=== PATIENT | male | born 1980 | race Caucasian/White ===

== ENCOUNTER 2017-01-13 12:09 | Emergency (ER) | payer OTHER ==
[~2017-01-13] VITALS: Ht 167.6 cm; Wt 78.1 kg
[2017-01-13 12:15] VITALS: TEMP 37.1; Ht 167.6 cm; Wt 78.1 kg
[2017-01-13 12:47] VITALS: O2SAT 96
[2017-01-13 13:09] LABS: BASO % 0.2 %; BASO ABS # 0.02 K/uL (0-0.2); COMPLETE YES; EOS % 0.1 %; HEMATOCRIT 47.4 % (42-52); IG% 0.2 %; LYMPH % 9.6 %; LYMPH ABS # 1.16 K/uL (1.2-3.4); MEAN CELL VOLUME 89.6 fL (80-100); MEAN CORPUSCULAR HEMOGLOBIN 31.2 pg (25-34); MEAN CORPUSCULAR HGB CONC 34.8 g/dl (32-36); MONO % 6.8 %; NEUT % 83.1 %; PLATELET COUNT 226 K/uL (130-400); RED BLOOD COUNT 5.29 M/uL (4.7-6.1); WHITE BLOOD COUNT 12.11 K/uL (4.8-10.8)
--- NOTE | 2017-01-13 13:26 | EMERGENCY ROOM VISIT NOTE ---
History Report prepared by Asad: Virgil Byrd Under the Supervision of: Dr. Jake Loomis M.D. First contact with patient: 12:53 Chief Complaint: ABDOMINAL PAIN Stated Complaint: abd pain Nursing Triage Summary: Patient arrives via ALS from home with complaints of abdominal pain 10/10. Per EMS report the patient took his own dose of phenergen this morning but vomitted it up. Patient reports vomiting 4 times this morning. History of abdominal pain , has seen his PCP but everything has been negative. History of Present Illness The patient is a 36 year old male who presents to the Emergency Room via ALS with complaints of persistent abdominal pain that started 3 or 4 days ago. He rates the pain as a 10/10 in severity. He says that he has been vomiting, and cannot keep anything down. EMS reports that the patient took his own dose of Phenergan this morning but vomited it up. The patient reports vomiting 4 times this morning. He has a history of abdominal pain, but has not followed with dosimetrist since 2014. He says that he has had no issues since that time. Source of History: patient, EMS Onset: 3 or 4 days ago Position: abdomen Symptom Intensity: 1010 Timing: other (persistent) Associated Symptoms: + vomiting Note: Cannot keep any food or liquids down. No other associated symptoms noted. Review of Systems See HPI for pertinent positives & negatives. A total of 10 systems reviewed and were otherwise negative. Past Medical & Surgical Medical Problems: (1) Gastroesophageal reflux disease Surgical Problems: (1) S/P T&A (status post tonsillectomy and adenoidectomy) Family History Cancer Diabetes mellitus FHx: stroke Heart disease Social History Smoking Status: Current Every Day Smoker Alcohol Use: none Marital Status: Housing Status: lives with family Occupation Status: unemployed Current/Historical Medications Scheduled Ondasetron Odt (Zofran Odt), 4 MG SL Q6H Allergies Coded Allergies: No Known Allergies (Verified , 05/09/15) Physical Exam Vital Signs Date Time Temp Pulse Resp B/P (MAP) Pulse Ox O2 Delivery O2 Flow Rate FiO2 01/13/17 15:24 54 26 120/59 94 01/13/17 15:09 50 26 95 01/13/17 15:07 122/73 01/13/17 15:06 54 16 122/73 95 Room Air 01/13/17 14:54 57 28 96 01/13/17 14:39 56 24 159/83 99 01/13/17 14:39 55 18 159/83 97 Room Air 01/13/17 14:09 56 29 98 01/13/17 14:00 68 18 150/93 97 Room Air 01/13/17 14:00 150/93 01/13/17 13:58 175/124 01/13/17 13:54 53 6 97 01/13/17 13:39 55 13 98 01/13/17 13:24 49 8 97 01/13/17 13:09 64 14 96 01/13/17 12:54 59 18 97 01/13/17 12:47 96 Room Air 01/13/17 12:39 56 13 98 01/13/17 12:30 49 01/13/17 12:15 37.1 65 18 140/82 97 Room Air 01/13/17 12:13 140/82 Physical Exam GENERAL: Patient is a healthy-appearing well-nourished 36 year old male. HEAD: Normocephalic atraumatic EYES: Ocular movements intact pupils equal and react to light OROPHARYNX mucous membranes are moist no exudates present no erythema or edema present NECK: Supple no nuchal rigidity CHEST: Good equal expansion LUNGS: Clear and equal to auscultation CARDIAC: Normal S1 and S2 ABDOMEN: Soft no guarding. Minimally tender abdomen. BACK: No CVA tenderness EXTREMITIES: No pain upon palpation normal muscle strength in all groups no clubbing cyanosis or edema NEURO: Patient is following commands and answering questions appropriately. Alert and oriented x3 Cranial Nerves 2-12 grossly intact Medical Decision & Procedures ER Provider Diagnostic Interpretation: X-ray results as stated below per interpretation by me and the radiologist: ABDOMEN 2VIEW W/PA CHEST RTN CLINICAL HISTORY: Pt c/o diffuse abd pain pain COMPARISON STUDY: No previous studies for comparison. FINDINGS: Lungs are clear. Diaphragms are smooth. No evidence for cardiac enlargement. Bowel pattern is nonobstructive. Psoas shows are intact. No secondary signs of free air. IMPRESSION: Negative chest. Negative abdomen. Electronically signed by: Jensen rGimaldo M.D. 01/13/2017 2:35 PM Dictated Date/Time: 01/13/2017 2:34 PM Laboratory Results 01/13/17 12:43 Red Blood Count 5.29, Mean Corpuscular Volume 89.6, Mean Corpuscular Hemoglobin 31.2, Mean Corpuscular Hemoglobin Concent 34.8, Mean Platelet Volume 11.0, Neutrophils (%) (Auto) 83.1, Lymphocytes (%) (Auto) 9.6, Monocytes (%) (Auto) 6.8, Eosinophils (%) (Auto) 0.1, Basophils (%) (Auto) 0.2, Neutrophils # (Auto) 10.08, Lymphocytes # (Auto) 1.16, Monocytes # (Auto) 0.82, Eosinophils # (Auto) 0.01, Basophils # (Auto) 0.02 01/13/17 13:56 Test 01/13/17 12:43 01/13/17 13:56 White Blood Count 12.11 K/uL (4.8-10.8) Red Blood Count 5.29 M/uL (4.7-6.1) Hemoglobin 16.5 g/dL (14.0-18.0) Hematocrit 47.4 % (42-52) Mean Corpuscular Volume 89.6 fL (80-100) Mean Corpuscular Hemoglobin 31.2 pg (25-34) Mean Corpuscular Hemoglobin Concent 34.8 g/dl (32-36) Platelet Count 226 K/uL (130-400) Mean Platelet Volume 11.0 fL (7.4-10.4) Neutrophils (%) (Auto) 83.1 % Lymphocytes (%) (Auto) 9.6 % Monocytes (%) (Auto) 6.8 % Eosinophils (%) (Auto) 0.1 % Basophils (%) (Auto) 0.2 % Neutrophils # (Auto) 10.08 K/uL (1.4-6.5) Lymphocytes # (Auto) 1.16 K/uL (1.2-3.4) Monocytes # (Auto) 0.82 K/uL (0.11-0.59) Eosinophils # (Auto) 0.01 K/uL (0-0.5) Basophils # (Auto) 0.02 K/uL (0-0.2) RDW Standard Deviation 45.1 fL (36.4-46.3) RDW Coefficient of Variation 13.9 % (11.5-14.5) Immature Granulocyte % (Auto) 0.2 % Immature Granulocyte # (Auto) 0.02 K/uL (0.00-0.02) Anion Gap 6.0 mmol/L (3-11) Est Creatinine Clear Calc Drug Dose 125.5 ml/min Estimated GFR () 133.2 Estimated GFR (Non- 114.9 BUN/Creatinine Ratio 18.7 (10-20) Calcium Level 9.1 mg/dl (8.5-10.1) Total Bilirubin 0.5 mg/dl (0.2-1) Aspartate Amino Transf (AST/SGOT) 14 U/L (15-37) Alanine Aminotransferase (ALT/SGPT) 24 U/L (12-78) Alkaline Phosphatase 65 U/L (45-117) Total Protein 7.1 gm/dl (6.4-8.2) Albumin 4.0 gm/dl (3.4-5.0) Globulin 3.1 gm/dl (2.5-4.0) Albumin/Globulin Ratio 1.3 (0.9-2) Lipase 117 U/L (73-393) Labs reviewed by ED physician. Medications Administered Medications (Trade) Dose Ordered Sig/Hermelindo Route Start Time Stop Time Status Last Admin Dose Admin Ketorolac Tromethamine (Toradol Inj) 30 mg NOW STAT IV 01/13/17 13:33 01/13/17 13:36 DC 01/13/17 14:02 30 MG Prochlorperazine Edisylate (Compazine Inj) 10 mg NOW STAT IV 01/13/17 13:33 01/13/17 13:36 DC 01/13/17 14:02 10 MG Diphenhydramine HCl (Benadryl Inj) 50 mg NOW STAT IV 01/13/17 13:33 01/13/17 13:36 DC 01/13/17 14:03 50 MG Sodium Chloride 1,000 ml @ 999 mls/hr Q1H1M STAT IV 01/13/17 13:33 01/13/17 14:33 DC 01/13/17 14:02 999 MLS/HR Capsaicin (Zostrix Crm) 1 appln NOW ONCE EXT 01/13/17 15:00 01/13/17 15:03 DC 01/13/17 14:39 1 APPLN ED Course 1329: Past medical records reviewed. The patient was evaluated in room A3. A complete history and physical examination was performed. 1333: Ordered NSS 1000 ml @ 999 mls/hr IV, Benadryl Inj 50 mg IV, Compazine Inj 10 mg IV, Toradol Ing 30 mg IV. 1455: Upon reexamination the patient is resting comfortably. I discussed results and treatment plan with the patient. He verbalizes agreement and understanding. The patient is ready for discharge. 1500: Ordered Zostrix Crm 1 appln EXT. Medical Decision Differential diagnosis: Etiologies such as appendicitis, diverticulitis, PUD, biliary pathology, UTI, pancreatitis, obstruction, mesenteric ischemia, aortic pathology, infections, inflammatory bowel disease, renal colic, as well as others were entertained. Medication Reconciliation: I attest that I have personally reviewed the patient' s current medication list Blood Pressure Screening: Patient was found to have an elevated blood pressure and was referred to their primary care doctor for recheck and further treatment This is a 36-year-old male who presents emergency department complaining of nausea and vomiting. I will note that the patient has had multiple workups for his abdominal pain and does not appear to be tender on my examination. 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 For this reason the patient was placed on capseisin. An IV was also established the patient was given normal saline bolus, Toradol. I do believe that the patient is well enough that he can be discharged home. Prior to discharge the patient was given Gatorade and he was able to tolerate this in the emergency department. I will continue the patient on capsaicin at home. Patient was in agreement with the treatment plan. Impression Primary Impression: Acute gastroenteritis Scribe Attestation The scribe's documentation has been prepared under my direction and personally reviewed by me in its entirety. I confirm that the note above accurately reflects all work, treatment, procedures, and medical decision making performed by me. Departure Information Dispostion Home / Self-Care Prescriptions Ondasetron Odt (ZOFRAN ODT) 4 Mg Tab 4 MG SL Q6H for Nausea, #6 TAB Prov: Jake Loomis MD 01/13/17 Referrals No Doctor, Assigned (PCP) Forms Call Back Authorization, HOME CARE DOCUMENTATION FORM, IMPORTANT VISIT INFORMATION, School Instructions, Work Instructions Patient Instructions ED Gastroenteritis Viral, [facility], Nausea Vomit Control Additional Instructions Apply capsaicin to chest 3 times a day You were found to have an elevated blood pressure today (>120 sytolic or >90 diastolic). Per medicare guidelines, you need to follow up with this blood pressure screening with your Primary Care Physician (PCP). For a new PCP call [phone]. You have been examined and treated today on an emergency basis only. This is not a substitute for, or an effort to provide, complete comprehensive medical care. It is impossible to recognize and treat all injuries or illnesses in a single emergency department visit. It is therefore important that you follow up closely with your PCP. Call as soon as possible for an appointment. Thank you for your time and consideration. I look forward to speaking with you again soon. Please don't hesitate to call us if you have any questions.
[2017-01-13] MEDS ORDERED: CAPSAICIN CR 0.075% 60 GM TUBE EXT STA (13:33)
[2017-01-13] MEDS ORDERED: SODIUM CHLORIDE 0.9% 1000ML 1,000 ML IV STA (13:33)
[2017-01-13] MEDS ORDERED: DiphenhydrAMINE HCL 50 MG/ML VIAL IV STA (13:33)
[2017-01-13] MEDS ORDERED: PROCHLORPERAZINE 5 MG/ML 2 ML VIAL IV STA (13:33)
[2017-01-13] MEDS ORDERED: KETOROLAC TROMETHAMINE 30 MG/ML VIAL IV STA (13:33)
[2017-01-13 14:25] LABS: BUN/CREATININE RATIO 18.7 (10-20); CALCIUM 9.1 mg/dl (8.5-10.1); CREATININE 0.8 mg/dl (0.60-1.40); POTASSIUM 3.8 mmol/L (3.5-5.1)
[2017-01-13 14:27] LABS: ALB/GLOB RATIO 1.3 (0.9-2)
--- NOTE | 2017-01-13 14:36 | DIAGNOSTIC IMAGING REPORT ---
ABDOMEN 2VIEW W/PA CHEST RTN CLINICAL HISTORY: Pt c/o diffuse abd pain pain COMPARISON STUDY: No previous studies for comparison. FINDINGS: Lungs are clear. Diaphragms are smooth. No evidence for cardiac enlargement. Bowel pattern is nonobstructive. Psoas shows are intact. No secondary signs of free air. IMPRESSION: Negative chest. Negative abdomen. Electronically signed by: Jensen Grimaldo M.D. 01/13/2017 2:35 PM Dictated Date/Time: 01/13/2017 2:34 PM
[2017-01-13] MEDS ORDERED: CAPSAICIN CR 0.075% 60 GM TUBE EXT ONE (15:00)
[2017-01-13] MEDS ORDERED: ONDA4TAB10 SL (15:02)
[2017-01-13 15:24] VITALS: BP 120/59; PULSE 54; O2SAT 94
== END 2017-01-13 16:25 | disposition home or self-care (01) ==
LOC: EDBD 12:09 → C.EDA 12:10
DX: K52.9 Noninfective gastroenteritis and colitis, unspecified (principal); K21.9 Gastro-esophageal reflux disease without esophagitis; F17.200 Nicotine dependence, unspecified, uncomplicated; Z83.3 Family history of diabetes mellitus; Z82.3 Family history of stroke

== ENCOUNTER 2017-09-07 10:30 | Emergency (ER) | payer OTHER ==
[~2017-09-07] VITALS: Ht 167.6 cm; Wt 67.7 kg
[2017-09-07 10:30] VITALS: TEMP 36.7; Ht 167.6 cm; Wt 67.7 kg
[2017-09-07] MEDS ORDERED: KETOROLAC TROMETHAMINE 30 MG/ML VIAL IV STA (10:40)
[2017-09-07] MEDS ORDERED: DiphenhydrAMINE HCL 50 MG/ML VIAL IV STA (10:40)
[2017-09-07] MEDS ORDERED: SODIUM CHLORIDE 0.9% 1000ML 1,000 ML IV STA (10:40)
--- NOTE | 2017-09-07 10:45 | EMERGENCY ROOM VISIT NOTE ---
History First contact with patient: 10:31 Stated Complaint: ABDOMINAL PAIN History of Present Illness The patient is a 37 year old male who presents to the Emergency Room via ambulance with complaints of "abdominal pain". The patient states that last night he began with abdominal pain and the epigastric and left upper quadrant region. He notes that he then tried to fall asleep, and awoke this morning with vomiting and pain in the same region. He rates the pain as a 10/10. He denies any medications today thus far for his symptoms. He notes a history of this for many years. Per EMS who transported the patient, they gave him Zofran 4 mg IV. Review of Systems A complete 10-point Review of Systems was discussed with the patient, with pertinent positives and negatives listed in the History of Present Illness. All remaining Review of Systems questions can be considered negative unless otherwise specified. Past Medical/Surgical History Medical Problems: (1) Gastroesophageal reflux disease Surgical Problems: (1) S/P T&A (status post tonsillectomy and adenoidectomy) Family History Cancer Diabetes mellitus FHx: stroke Heart disease Social History Smoking Status: Current Every Day Smoker Alcohol Use: none Marital Status: Housing Status: lives with family Occupation Status: unemployed Current/Historical Medications Scheduled Dicyclomine Hcl (Bentyl), 10 MG PO QID Pantoprazole (Protonix), 40 MG PO DAILY Allergies Coded Allergies: Prochlorperazine (Verified Adverse Reaction, Unknown, UNKNOWN, 09/07/17) Physical Exam Vital Signs Date Time Temp Pulse Resp B/P (MAP) Pulse Ox O2 Delivery O2 Flow Rate FiO2 09/07/17 14:20 66 18 142/85 95 Room Air 09/07/17 12:24 80 18 137/83 97 Room Air 09/07/17 10:52 67 09/07/17 10:30 36.7 69 16 139/91 98 Room Air Physical Exam VITAL SIGNS - Vital signs and nursing notes were reviewed. Stable. GENERAL - 37-year-old male appearing his stated age who is in no acute distress. Communicates well with provider and answers questions appropriately. SKIN - Without rashes. HEAD - NC/AT. EYES - PERRL with EOMI bilaterally. Sclera anicteric. EARS - No deformities of external structures noted on gross examination bilaterally. NOSE - Midline and without cyanosis. MOUTH/OROPHARYNX - Without perioral cyanosis. LUNGS - Chest wall symmetric without accessory muscle use, intercostals retractions, or central cyanosis. Normal vesicular breath sounds CTA B/L. No wheezes, rales, or rhonchi appreciated. CARDIAC - RRR with S1/S2. No murmur, rubs, or gallops appreciated. ABDOMEN - Abdominal contour normal without pulsations or visible masses. BS normoactive all four quadrants. LUQ and epigastric region TTP. EXTREMITIES - No clubbing or peripheral cyanosis. No pretibial edema present. NEUROLOGIC - Cranial nerves II through XII grossly intact. PSYCH - A&O, and cooperates fully with examiner. Pt is very pleasant and interacts well with examiner. Medical Decision & Procedures ER Provider Diagnostic Interpretation: ABDOMEN 2VIEW W/PA CHEST RTN CLINICAL HISTORY: upper abd pain COMPARISON STUDY: 01/13/2017 FINDINGS: The erect chest reveals no evidence of free air. There is no evidence of focal pulmonary consolidation.] Erect and supine views of the abdomen reveal no abnormally dilated loops of large or small bowel. There are no transition zone to indicate bowel obstruction. IMPRESSION: No evidence of bowel obstruction. No evidence of free air. Electronically signed by: Behzad Mondragon M.D. 09/07/2017 11:49 AM Dictated Date/Time: 09/07/2017 11:49 AM ABDOMINAL ULTRASOUND, RIGHT UPPER QUADRANT HISTORY: upper abd pain. COMPARISON: Abdomen and pelvis CT 11/17/2014. FINDINGS: Pancreas: The pancreatic tail is obscured by overlying bowel gas. The remaining portions of the pancreas are within normal limits. Liver: Unremarkable. Gallbladder: No gallbladder wall thickening. No gallstones. CBD: 4 mm. Right kidney: No hydronephrosis. IMPRESSION: No significant abnormality identified within the right upper quadrant. Electronically signed by: Giovanni Erickson M.D. 09/07/2017 1:02 PM Dictated Date/Time: 09/07/2017 1:00 PM Laboratory Results 09/07/17 11:20 Red Blood Count 4.91, Mean Corpuscular Volume 90.0, Mean Corpuscular Hemoglobin 31.6, Mean Corpuscular Hemoglobin Concent 35.1, Mean Platelet Volume 9.7, Neutrophils (%) (Auto) 85.2, Lymphocytes (%) (Auto) 10.3, Monocytes (%) (Auto) 4.0, Eosinophils (%) (Auto) 0.0, Basophils (%) (Auto) 0.2, Neutrophils # (Auto) 7.43, Lymphocytes # (Auto) 0.90, Monocytes # (Auto) 0.35, Eosinophils # (Auto) 0.00, Basophils # (Auto) 0.02 09/07/17 11:20 Test 09/07/17 11:20 White Blood Count 8.73 K/uL (4.8-10.8) Red Blood Count 4.91 M/uL (4.7-6.1) Hemoglobin 15.5 g/dL (14.0-18.0) Hematocrit 44.2 % (42-52) Mean Corpuscular Volume 90.0 fL (80-100) Mean Corpuscular Hemoglobin 31.6 pg (25-34) Mean Corpuscular Hemoglobin Concent 35.1 g/dl (32-36) Platelet Count 192 K/uL (130-400) Mean Platelet Volume 9.7 fL (7.4-10.4) Neutrophils (%) (Auto) 85.2 % Lymphocytes (%) (Auto) 10.3 % Monocytes (%) (Auto) 4.0 % Eosinophils (%) (Auto) 0.0 % Basophils (%) (Auto) 0.2 % Neutrophils # (Auto) 7.43 K/uL (1.4-6.5) Lymphocytes # (Auto) 0.90 K/uL (1.2-3.4) Monocytes # (Auto) 0.35 K/uL (0.11-0.59) Eosinophils # (Auto) 0.00 K/uL (0-0.5) Basophils # (Auto) 0.02 K/uL (0-0.2) RDW Standard Deviation 45.7 fL (36.4-46.3) RDW Coefficient of Variation 13.8 % (11.5-14.5) Immature Granulocyte % (Auto) 0.3 % Immature Granulocyte # (Auto) 0.03 K/uL (0.00-0.02) Anion Gap 7.0 mmol/L (3-11) Est Creatinine Clear Calc Drug Dose 125.0 ml/min Estimated GFR () 137.3 Estimated GFR (Non- 118.5 BUN/Creatinine Ratio 8.8 (10-20) Calcium Level 9.0 mg/dl (8.5-10.1) Total Bilirubin 0.3 mg/dl (0.2-1) Aspartate Amino Transf (AST/SGOT) 14 U/L (15-37) Alanine Aminotransferase (ALT/SGPT) 19 U/L (12-78) Alkaline Phosphatase 58 U/L (45-117) Total Protein 7.0 gm/dl (6.4-8.2) Albumin 3.9 gm/dl (3.4-5.0) Globulin 3.1 gm/dl (2.5-4.0) Albumin/Globulin Ratio 1.2 (0.9-2) Lipase 111 U/L (73-393) Medications Administered Medications (Trade) Dose Ordered Sig/Hermelindo Route Start Time Stop Time Status Last Admin Dose Admin Sodium Chloride 1,000 ml @ 999 mls/hr Q1H1M STAT IV 09/07/17 10:40 09/07/17 11:40 DC 09/07/17 11:03 999 MLS/HR Ketorolac Tromethamine (Toradol Inj) 30 mg NOW STAT IV 09/07/17 10:40 09/07/17 10:43 DC 09/07/17 11:04 30 MG Diphenhydramine HCl (Benadryl Inj) 25 mg NOW STAT IV 09/07/17 10:40 09/07/17 10:43 DC 09/07/17 11:04 25 MG Promethazine HCl 12.5 mg/Sodium Chloride 50.5 ml @ 204 mls/hr NOW STAT IV 09/07/17 13:22 09/07/17 13:36 DC 09/07/17 13:24 204 MLS/HR Medical Decision Patient was seen and evaluated as above. He presents to us via ambulance for abdominal pain. Review of his previous visits indicate that he has been evaluated here numerous times for abdominal pain. After obtaining a thorough history and physical examination the above work up was performed. Patient does not have a surgical abdomen on exam. Plain film was obtained as well as right upper quadrant ultrasound. Negative for acute process. CBC reveals a leukocytosis or anemia. patient's metabolic panel does not reveal any evidence of kidney or liver failure. lipase negative. He did not provide a urine sample. He was given Benadryl and Toradol for pain as well as fluids to hydrate him. He was reevaluated and noted that he would like something more for nausea as po fluid trial was attempted. He was given Phenergan. He was reevaluated and his nausea persisted. He has not vomited to my knowledge in this facility today. He requested something stronger for pain. I informed him that at this time there is nothing evident on his workup that appears surgical. He informed me that his only medication today was Zofran. I was able to find out that he was seen around 5 AM at the [facility] emergency Department where he received Zofran, Benadryl, Reglan and fluids. I discussed this with the patient informed him that this would have been pertinent information to provide as I do not want to give him too many similar medications are the same medications. He still persists that he was only given Zofran at that time. I did elect to provide him Benadryl here as noted above as I believe the dosages appropriate. I chose to refrain from utilizing opiates in this case for the patient's abdominal pain secondary to the concern for seeking behavior that was also evident when the patient noted that he was feeling anxious. I asked him if he had any thoughts to harm self or others and he notes that sometimes harm himself. At this time he denies any suicidal ideation and notes no plan. He then notes that he was given something in the past at a hospital and wants to know if he can have that here. He believes it was Ativan. I informed him that I'm more than happy to help obtain psychiatric services for him/have mental health evaluation however do not feel comfortable providing him with Ativan as it is a narcotic medication. Again, this further was concerning for drug- seeking behavior. Patient has been seen by both the [place] emergency Department this morning as well as here. He declined mental health evaluation. The patient was educated upon management, had questions answered prior to discharge, and was discharged home in good condition. Case was discussed with the attending physician In the evaluation and treatment of this patient the following differential diagnoses were entertained: Appendicitis, cholangitis, cholecystitis, PE, pneumonia, drug-seeking behavior Impression Primary Impression: Abdominal pain Departure Information Dispostion Home / Self-Care Condition GOOD Referrals No Doctor, Assigned (PCP) Additional Instructions You have been treated in the Emergency Department your Abdominal Pain. Laboratory results and imaging studies have ruled out any emergent causes for your abdominal pain which would warrant admission or surgery. For pain control, you can use the following [id number] medicines: - Regular strength (325mg/tab) Tylenol (acetaminophen) 2 tabs every 4-6 hours as needed. Do not exceed 12 tablets in a 24 hour period. Avoid taking more than 3 grams (3000 mg) of Tylenol per day. This includes any other sources of acetaminophen you may take on a regular basis. - Regular strength (200 mg/tab) Advil (ibuprofen) 1-2 tabs every 4-6 hours as needed. Do not exceed a dose of 3200 mg per day. Drink plenty of water and stay well hydrated. As with any trip to the Emergency Department, you should follow-up with your Primary Care Provider from today's visit. I also recommend following up with your GI specialist for your abdominal pain. Return to the emergency department if your symptoms persist despite treatment plan outlined above or if the following symptoms occur: increased fevers, chills , worsening nausea/vomiting, blood in your stool or urine. Problem Qualifiers Primary Impression: Abdominal pain Abdominal location: generalized Qualified Codes: R10.84 - Generalized abdominal pain
[2017-09-07] MEDS ORDERED: DICY10CA55 PO (10:51)
[2017-09-07] MEDS ORDERED: PANT40TA PO (10:51)
[2017-09-07] MEDS ORDERED: PROMETHAZINE HCL INJ 12.5 MG in SODIUM CHLORIDE 0.9% 50ML 50 ML IV STA ×2 (11:00→13:22)
[2017-09-07 11:47] LABS: BASO % 0.2 %; BASO ABS # 0.02 K/uL (0-0.2); HEMATOCRIT 44.2 % (42-52); HEMOGLOBIN 15.5 g/dL (14.0-18.0); IG# 0.03 K/uL (0.00-0.02); LYMPH % 10.3 %; MEAN CORPUSCULAR HEMOGLOBIN 31.6 pg (25-34); MEAN CORPUSCULAR HGB CONC 35.1 g/dl (32-36); MEAN PLATELET VOLUME 9.7 fL (7.4-10.4); MONO ABS # 0.35 K/uL (0.11-0.59); NEUT % 85.2 %; NEUT ABS # 7.43 K/uL (1.4-6.5); PLATELET COUNT 192 K/uL (130-400); RED CELL DISTRIBUTION WIDTH CV 13.8 % (11.5-14.5); RED CELL DISTRIBUTION WIDTH SD 45.7 fL (36.4-46.3); WHITE BLOOD COUNT 8.73 K/uL (4.8-10.8)
--- NOTE | 2017-09-07 11:50 | DIAGNOSTIC IMAGING REPORT ---
ABDOMEN 2VIEW W/PA CHEST RTN CLINICAL HISTORY: upper abd pain COMPARISON STUDY: 01/13/2017 FINDINGS: The erect chest reveals no evidence of free air. There is no evidence of focal pulmonary consolidation.] Erect and supine views of the abdomen reveal no abnormally dilated loops of large or small bowel. There are no transition zone to indicate bowel obstruction. IMPRESSION: No evidence of bowel obstruction. No evidence of free air. Electronically signed by: Behzad Mondragon M.D. 09/07/2017 11:49 AM Dictated Date/Time: 09/07/2017 11:49 AM
[2017-09-07 12:06] LABS: ALBUMIN 3.9 gm/dl (3.4-5.0); CREATININE 0.73 mg/dl (0.60-1.40); POTASSIUM 3.9 mmol/L (3.5-5.1)
--- NOTE | 2017-09-07 13:04 | DIAGNOSTIC IMAGING REPORT ---
ABDOMINAL ULTRASOUND, RIGHT UPPER QUADRANT HISTORY: upper abd pain. COMPARISON: Abdomen and pelvis CT 11/17/2014. FINDINGS: Pancreas: The pancreatic tail is obscured by overlying bowel gas. The remaining portions of the pancreas are within normal limits. Liver: Unremarkable. Gallbladder: No gallbladder wall thickening. No gallstones. CBD: 4 mm. Right kidney: No hydronephrosis. IMPRESSION: No significant abnormality identified within the right upper quadrant. Electronically signed by: Giovanni Erickson M.D. 09/07/2017 1:02 PM Dictated Date/Time: 09/07/2017 1:00 PM
[2017-09-07 14:20] VITALS: BP 142/85; PULSE 66; O2SAT 95
== END 2017-09-07 14:25 | disposition home or self-care (01) ==
LOC: EDBD 10:30 → C.EDC 10:31
DX: R10.84 Generalized abdominal pain (principal); K21.9 Gastro-esophageal reflux disease without esophagitis; Z80.9 Family history of malignant neoplasm, unspecified; Z83.3 Family history of diabetes mellitus; Z82.49 Family history of ischemic heart disease and other diseases of the circulatory system; F17.210 Nicotine dependence, cigarettes, uncomplicated; Z79.899 Other long term (current) drug therapy; Z88.8 Allergy status to other drugs, medicaments and biological substances

== ENCOUNTER 2017-11-05 13:22 | Emergency (ER) | payer OTHER ==
[~2017-11-05] VITALS: Ht 167.6 cm; Wt 67.3 kg
[~2017-11-05 13:22] MED LIST: DICY10CA55 PO; PANT40TA PO
[2017-11-05 13:29] VITALS: TEMP 36.9; Ht 167.6 cm; Wt 67.3 kg
[2017-11-05] MEDS ORDERED: KETOROLAC TROMETHAMINE 30 MG/ML VIAL IV STA (13:33)
[2017-11-05] MEDS ORDERED: ONDANSETRON INJ 2 MG/ML 2 ML VIAL IV STA (13:33)
[2017-11-05] MEDS ORDERED: DiphenhydrAMINE HCL 50 MG/ML VIAL IV STA (13:33)
[2017-11-05 13:35] VITALS: O2SAT 94
--- NOTE | 2017-11-05 13:47 | DIAGNOSTIC IMAGING REPORT ---
CHEST ONE VIEW PORTABLE HISTORY: Atypical Chest pain COMPARISON: Chest 09/07/2017. FINDINGS: The lungs are clear. Cardiac silhouette is normal in size. No pleural effusions. No pneumothorax. IMPRESSION: No acute process. Electronically signed by: Giovanni Erickson M.D. 11/05/2017 1:46 PM Dictated Date/Time: 11/05/2017 1:45 PM
[2017-11-05 13:51] LABS: BASO % 0.2 %; BASO ABS # 0.03 K/uL (0-0.2); HEMATOCRIT 52.1 % (42-52); HEMOGLOBIN 18.5 g/dL (14.0-18.0); IG# 0.05 K/uL (0.00-0.02); LYMPH % 3.7 %; LYMPH ABS # 0.51 K/uL (1.2-3.4); MEAN CORPUSCULAR HGB CONC 35.5 g/dl (32-36); MEAN PLATELET VOLUME 10.3 fL (7.4-10.4); MONO % 3.5 %; MONO ABS # 0.48 K/uL (0.11-0.59); NEUT % 92.2 %; NEUT ABS # 12.55 K/uL (1.4-6.5); PLATELET COUNT 252 K/uL (130-400); RED CELL DISTRIBUTION WIDTH CV 14.2 % (11.5-14.5); RED CELL DISTRIBUTION WIDTH SD 48.2 fL (36.4-46.3); WHITE BLOOD COUNT 13.62 K/uL (4.8-10.8)
[2017-11-05 14:09] LABS: ALBUMIN 4.5 gm/dl (3.4-5.0); CALCIUM 9.5 mg/dl (8.5-10.1); CREATININE 1.23 mg/dl (0.60-1.40); TOTAL PROTEIN 8.3 gm/dl (6.4-8.2)
[2017-11-05 14:11] LABS: POTASSIUM 4.2 mmol/L (3.5-5.1)
[2017-11-05] MEDS ORDERED: OPTIRAY 320 IV PRN (14:15)
[2017-11-05 14:48] LABS: INFLUENZA B ANTIGEN Neg for Influ B (NEG)
--- NOTE | 2017-11-05 14:52 | DIAGNOSTIC IMAGING REPORT ---
CT ANGIOGRAPHY OF THE CHEST, PULMONARY EMBOLUS PROTOCOL CLINICAL HISTORY: Elevated d-dimer. Left-sided chest pain. COMPARISON STUDY: Chest CT April 15, 2014 and chest radiograph performed earlier today. TECHNIQUE: Following IV administration of 93 mL of Optiray-320, helical axial images of the chest were obtained utilizing the pulmonary embolus protocol. Maximal intensity projections and sagittal and coronal reformats were viewed on an independent 3D workstation. IV contrast was administered without complication. A dose lowering technique was utilized adhering to the principles of ALARA. CT DOSE: 228.39 mGy.cm FINDINGS: No pulmonary emboli are identified. There is no evidence of thoracic aortic dissection. No pericardial effusion is noted. No enlarged axillary, mediastinal or hilar lymph nodes are present. The central airways are patent. There is no consolidation to suggest pneumonia. No pneumothorax or pleural effusion is noted. There is no pneumomediastinum. There is mild upper lobe predominant paraseptal and centrilobular emphysema. Bony thorax and upper abdomen are unremarkable. IMPRESSION: 1. No pulmonary emboli identified. 2. No acute intrathoracic findings. 3. Mild upper lobe predominant emphysema. Electronically signed by: Roe Cobb M.D. 11/05/2017 2:51 PM Dictated Date/Time: 11/05/2017 2:43 PM
[2017-11-05] MEDS ORDERED: SODIUM CHLORIDE 0.9% 1000ML 1,000 ML IV ONE (16:30)
[2017-11-05 17:51] VITALS: BP 155/78; PULSE 69; O2SAT 97
--- NOTE | 2017-11-05 19:43 | EMERGENCY ROOM VISIT NOTE ---
History First contact with patient: 13:23 Chief Complaint: CHEST PAIN Stated Complaint: CHEST PAIN Nursing Triage Summary: Pt arrives ALS from home. Pt c/o midsternal CP that started this morning. Pt reports pain radiates to back and left shoulder. Pt states last night he was vomiting and diaphoretic last night. Pt had 3 nitro en route without relief. Pt also had 10mg morphine without relief. 324mg ASA given en route History of Present Illness The patient is a 37 year old male who presents to the Emergency Room with complaints of chest pain that radiates to the left side chest and left shoulder that began worsening today. The patient states that he had diaphoresis and vomiting last night. His chest pain symptoms began this morning upon waking. The patient rated his discomfort at 10/10 and contacted EMS. He was given 3 nitro and 324 aspirin prehospital without improvement of symptoms. The patient was also given 10 mg of morphine prehospital which seems to have improved his pain to an 8/10. His discomfort does not seem to improve or worsen with movement or activity. He believes that he may have had a fever but did not check his temperature. He is not having distinct abdominal pain or difficulty using the bathroom. The patient appears quite sedated on presentation, and is requesting additional pain medication. He does not report a history of cardiovascular disease. His past medical history is significant for cannabinoid related hyperemesis. He has had both upper and lower endoscopy performed within the past 6 months that were both negative. Review of Systems More than 10 systems were reviewed and otherwise negative with the exception of history of present illness. Past Medical/Surgical History Medical Problems: (1) Gastroesophageal reflux disease Surgical Problems: (1) S/P T&A (status post tonsillectomy and adenoidectomy) Family History Cancer Diabetes mellitus FHx: stroke Heart disease Social History Smoking Status: Current Every Day Smoker Alcohol Use: none Drug Use: marijuana (Heavy daily usage) Marital Status: Housing Status: lives with family Occupation Status: unemployed Current/Historical Medications No Active Prescriptions or Reported Meds Physical Exam Vital Signs Date Time Temp Pulse Resp B/P (MAP) Pulse Ox O2 Delivery O2 Flow Rate FiO2 11/05/17 17:51 69 15 155/78 97 11/05/17 16:31 66 20 106/47 95 Room Air 11/05/17 16:01 63 18 138/78 96 Room Air 11/05/17 16:00 62 18 138/78 96 Room Air 11/05/17 15:02 63 16 96 Room Air 11/05/17 14:45 61 16 132/83 96 Room Air 11/05/17 13:37 72 11/05/17 13:35 94 Room Air 11/05/17 13:29 36.9 64 16 140/77 94 Room Air 11/05/17 13:29 96 Room Air Physical Exam VITALS: Vitals are noted on the nurse's note and reviewed by myself. Vital signs stable. GENERAL: Well-developed, well-nourished, white male, who appears mildly sedated on examination. He is able to answer questions very slowly. The patient appears to be falling asleep in his ER bed. EYES: Pupils equal round and reactive to light and accommodation. Conjunctivae without injection, sclerae without icterus. Extraocular movements intact. NOSE: Patent, turbinates without inflammation or discharge. MOUTH: Mucous membranes moist. Tonsils are not enlarged. Pharynx without erythema, blood, or exudate. Uvula midline. Airway patent. NECK: Supple without nuchal rigidity. No lymphadenopathy. No thyromegaly. Cervical spine is nontender. HEART: Regular rate and rhythm without murmurs gallops or rubs. LUNGS: Clear to auscultation bilaterally without wheezes, rales or rhonchi. No retractions or accessory muscle use. CHEST: No rash or palpable tenderness noted ABDOMEN: Positive normal bowel sounds x 4. Soft, nontender, without masses or organomegaly. No guarding or rebound tenderness. MUSCULOSKELETAL: No muscle atrophy, erythema, or edema noted. Full range of motion in all extremities. No tenderness to palpation. NEURO: Patient was alert and oriented to person place and time. CN II through XII grossly intact. Medical Decision & Procedures ER Provider Diagnostic Interpretation: CHEST ONE VIEW PORTABLE HISTORY: Atypical Chest pain COMPARISON: Chest 09/07/2017. FINDINGS: The lungs are clear. Cardiac silhouette is normal in size. No pleural effusions. No pneumothorax. IMPRESSION: No acute process. CT ANGIOGRAPHY OF THE CHEST, PULMONARY EMBOLUS PROTOCOL CLINICAL HISTORY: Elevated d-dimer. Left-sided chest pain. COMPARISON STUDY: Chest CT April 15, 2014 and chest radiograph performed earlier today. TECHNIQUE: Following IV administration of 93 mL of Optiray-320, helical axial images of the chest were obtained utilizing the pulmonary embolus protocol. Maximal intensity projections and sagittal and coronal reformats were viewed on an independent 3D workstation. IV contrast was administered without complication. A dose lowering technique was utilized adhering to the principles of ALARA. CT DOSE: 228.39 mGy.cm FINDINGS: No pulmonary emboli are identified. There is no evidence of thoracic aortic dissection. No pericardial effusion is noted. No enlarged axillary, mediastinal or hilar lymph nodes are present. The central airways are patent. There is no consolidation to suggest pneumonia. No pneumothorax or pleural effusion is noted. There is no pneumomediastinum. There is mild upper lobe predominant paraseptal and centrilobular emphysema. Bony thorax and upper abdomen are unremarkable. IMPRESSION: 1. No pulmonary emboli identified. 2. No acute intrathoracic findings. 3. Mild upper lobe predominant emphysema. Laboratory Results 11/05/17 13:15 Red Blood Count 5.60, Mean Corpuscular Volume 93.0, Mean Corpuscular Hemoglobin 33.0, Mean Corpuscular Hemoglobin Concent 35.5, Mean Platelet Volume 10.3, Neutrophils (%) (Auto) 92.2, Lymphocytes (%) (Auto) 3.7, Monocytes (%) (Auto) 3.5, Eosinophils (%) (Auto) 0.0, Basophils (%) (Auto) 0.2, Neutrophils # (Auto) 12.55, Lymphocytes # (Auto) 0.51, Monocytes # (Auto) 0.48, Eosinophils # (Auto) 0.00, Basophils # (Auto) 0.03 11/05/17 13:15 Test 11/05/17 13:15 11/05/17 13:39 11/05/17 13:49 11/05/17 14:00 White Blood Count 13.62 K/uL (4.8-10.8) Red Blood Count 5.60 M/uL (4.7-6.1) Hemoglobin 18.5 g/dL (14.0-18.0) Hematocrit 52.1 % (42-52) Mean Corpuscular Volume 93.0 fL (80-100) Mean Corpuscular Hemoglobin 33.0 pg (25-34) Mean Corpuscular Hemoglobin Concent 35.5 g/dl (32-36) Platelet Count 252 K/uL (130-400) Mean Platelet Volume 10.3 fL (7.4-10.4) Neutrophils (%) (Auto) 92.2 % Lymphocytes (%) (Auto) 3.7 % Monocytes (%) (Auto) 3.5 % Eosinophils (%) (Auto) 0.0 % Basophils (%) (Auto) 0.2 % Neutrophils # (Auto) 12.55 K/uL (1.4-6.5) Lymphocytes # (Auto) 0.51 K/uL (1.2-3.4) Monocytes # (Auto) 0.48 K/uL (0.11-0.59) Eosinophils # (Auto) 0.00 K/uL (0-0.5) Basophils # (Auto) 0.03 K/uL (0-0.2) RDW Standard Deviation 48.2 fL (36.4-46.3) RDW Coefficient of Variation 14.2 % (11.5-14.5) Immature Granulocyte % (Auto) 0.4 % Immature Granulocyte # (Auto) 0.05 K/uL (0.00-0.02) Anion Gap 10.0 mmol/L (3-11) Est Creatinine Clear Calc Drug Dose 74.2 ml/min Estimated GFR () 86.4 Estimated GFR (Non- 74.5 BUN/Creatinine Ratio 9.0 (10-20) Calcium Level 9.5 mg/dl (8.5-10.1) Magnesium Level 2.3 mg/dl (1.8-2.4) Total Bilirubin 0.6 mg/dl (0.2-1) Aspartate Amino Transf (AST/SGOT) 17 U/L (15-37) Alanine Aminotransferase (ALT/SGPT) 23 U/L (12-78) Alkaline Phosphatase 91 U/L (45-117) Total Protein 8.3 gm/dl (6.4-8.2) Albumin 4.5 gm/dl (3.4-5.0) Globulin 3.8 gm/dl (2.5-4.0) Albumin/Globulin Ratio 1.2 (0.9-2) Lipase 65 U/L (73-393) Thyroid Stimulating Hormone (TSH) 0.397 uIu/ml (0.300-4.500) Bedside D-Dimer > 450 ng/mlFEU (0-450) Bedside Troponin I < 0.030 ng/ml (0-0.045) Ethyl Alcohol mg/dL < 3.0 mg/dl (0-3) Influenza Type A Antigen Neg for Influ A (NEG) Influenza Type B Antigen Neg for Influ B (NEG) Test 11/05/17 16:07 Urine Color YELLOW Urine Appearance CLEAR (CLEAR) Urine pH >= 9.0 (4.5-7.5) Urine Specific [place] > 1.045 (1.000-1.030) Urine Protein 2+ (NEG) Urine Glucose (UA) NEG (NEG) Urine Ketones NEG (NEG) Urine Occult Blood NEG (NEG) Urine Nitrite NEG (NEG) Urine Bilirubin NEG (NEG) Urine Urobilinogen NEG (NEG) Urine Leukocyte Esterase NEG (NEG) Urine WBC (Auto) 1-5 /hpf (0-5) Urine RBC (Auto) 5-10 /hpf (0-4) Urine Hyaline Casts (Auto) 5-10 /lpf (0-5) Urine Epithelial Cells (Auto) 10-20 /lpf (0-5) Urine Bacteria (Auto) NEG (NEG) Urine Opiates Screen POS (NEG) Urine Methadone, Qualitative NEG (NEG) Urine Barbiturates NEG (NEG) Urine Phencyclidine (PCP) Level NEG (NEG) Ur Amphetamine/Methamphetamine NEG (NEG) MDMA (Ecstasy) Screen NEG (NEG) Urine Benzodiazepines Screen NEG (NEG) Urine Cocaine Metabolite NEG (NEG) Urine Marijuana (THC) POS (NEG) Medications Administered Medications (Trade) Dose Ordered Sig/Hermelindo Route Start Time Stop Time Status Last Admin Dose Admin Diphenhydramine HCl (Benadryl Inj) 25 mg NOW STAT IV 11/05/17 13:33 11/05/17 13:35 DC 11/05/17 13:33 25 MG Ketorolac Tromethamine (Toradol Inj) 30 mg NOW STAT IV 11/05/17 13:33 11/05/17 13:35 DC 11/05/17 13:33 30 MG Ondansetron HCl (Zofran Inj) 4 mg NOW STAT IV 11/05/17 13:33 11/05/17 13:35 DC 11/05/17 13:52 4 MG Sodium Chloride 1,000 ml @ 999 mls/hr Q1H1M ONCE IV 11/05/17 16:30 11/05/17 17:30 DC 4/27/18 16:26 999 MLS/HR ED Course Physical exam and history were performed. Nursing notes, EMR, and Medication List were personally reviewed. Patient appears to have chest pain for the past several hours bring him to the ER today. Review of the EMR shows that he was here recently for abdominal pain , and has a history of multiple visits for similar episodes. Review of his last ER visit note indicates that he is seen regularly at [facility], and I was able to review these records. The patient did have 4 visits to [place] in July, 9 visits to [place] in August, and several other additional visits in September of this year. He has had upper and lower endoscopies performed in the past 6 months that are negative. On examination today the patient appears quite sedated, which at this time is felt to be likely due to the morphine that he was given prehospital. Otherwise the patient appears well and certainly not toxic. IV access was established and labs were obtained. EKG was performed and was reviewed by myself as normal sinus rhythm at 60 bpm without ischemia or ectopy. Patient was hydrated with normal saline and given Benadryl and Zofran for comfort. I did elect to give him Toradol as I feel narcotics are unnecessary without objective findings. The patient has already been given nitroglycerin and aspirin prehospital without any change in his symptoms. He was placed on the welfare eligibility worker. The patient's blood work is as above and was reviewed. He does have a slightly elevated white blood cell count at 13,000. He may be hemoconcentrated related to a dehydration status. The patient was given an additional liter of saline, and had already had an initial liter of saline hung by the prehospital staff to bring him to 2 L here in the department. Lipase and transaminases are not diagnostic. His troponin 1 is negative. D-dimer was elevated and a CT scan of the chest was performed, which did not show PE. Urinalysis is without evidence of infection. Drug of abuse screen is positive for marijuana. On reevaluation the patient continued to request pain medication multiple times. He does not appear in any acute distress and did not have any worsening symptoms here in the department. Clinically I suspect his symptoms are related to his marijuana use, likely hyperemesis related to cannabinoids. The patient has had this in the past and this is well-documented throughout the [facility] system. The patient was offered drug and alcohol rehabilitation services as well as mental health evaluation, and declined. Overall he appears well for discharge home. The patient is to follow with his primary care physician for further care management. Based on the patient's visit I have significant concern for drug-seeking behavior, and his case will need to be monitored. The chart was completed utilizing [employer] Speech Voice Recognition Software. Grammatical errors, random word insertions, pronoun errors, and incomplete sentences are an occasional consequence of this system due to software limitations, ambient noise, and hardware issues. Any formal questions or concerns about the content, text, or information contained within the body of this dictation should be directly addressed to the provider for clarification. . Medical Decision Differential diagnosis includes, but is not limited to: Myocardial infarction, dysrhythmia, pericarditis, pneumothorax, aortic aneurysm/dissection, DVT/PE, anxiety, GERD, PUD, electrolyte imbalance, thyroid disorder, pneumonia, bronchitis, pancreatitis, and others Impression Primary Impression: Non-cardiac chest pain Additional Impression: Marijuana abuse, continuous Departure Information Prescriptions No Active Prescriptions or Reported Meds Referrals No Doctor, Assigned (PCP) Patient Instructions My [facility] Health Problem Qualifiers
== END 2017-11-05 17:45 | disposition home or self-care (01) ==
LOC: EDBD 13:22 → C.EDB 13:23
DX: R07.89 Other chest pain (principal); F17.210 Nicotine dependence, cigarettes, uncomplicated; F12.10 Cannabis abuse, uncomplicated

== ENCOUNTER 2017-11-07 02:42 | Emergency (ER) | payer OTHER ==
[~2017-11-07] VITALS: Ht 167.6 cm; Wt 66.4 kg
[2017-11-07 02:49] VITALS: TEMP 36.4; Ht 167.6 cm; Wt 66.4 kg
[2017-11-07] MEDS ORDERED: LIDOCAINE HCL 2% VISC SOLN 20 ML UDC PO STA (03:01)
[2017-11-07] MEDS ORDERED: LORAZEPAM 2 MG/ML 1 ML VIAL IV STA (03:01)
[2017-11-07] MEDS ORDERED: ALUMINUM/MAGNESIUM SUSP 30 ML UDC PO STA (03:01)
[2017-11-07] MEDS ORDERED: SODIUM CHLORIDE 0.9% 1000ML 1,000 ML IV STA (03:04)
[2017-11-07] MEDS ORDERED: ONDANSETRON INJ 2 MG/ML 2 ML VIAL IV STA (03:04)
[2017-11-07 03:28] LABS: BASO % 0.4 %; BASO ABS # 0.05 K/uL (0-0.2); EOS % 0.2 %; EOS ABS # 0.03 K/uL (0-0.5); HEMATOCRIT 47.8 % (42-52); HEMOGLOBIN 16.8 g/dL (14.0-18.0); IG# 0.04 K/uL (0.00-0.02); LYMPH % 12.4 %; LYMPH ABS # 1.59 K/uL (1.2-3.4); MEAN CELL VOLUME 92.1 fL (80-100); MEAN CORPUSCULAR HEMOGLOBIN 32.4 pg (25-34); MEAN CORPUSCULAR HGB CONC 35.1 g/dl (32-36); MEAN PLATELET VOLUME 9.7 fL (7.4-10.4); MONO % 10.4 %; MONO ABS # 1.34 K/uL (0.11-0.59); NEUT % 76.3 %; NEUT ABS # 9.79 K/uL (1.4-6.5); PLATELET COUNT 222 K/uL (130-400); RED CELL DISTRIBUTION WIDTH CV 13.9 % (11.5-14.5); WHITE BLOOD COUNT 12.84 K/uL (4.8-10.8)
[2017-11-07 03:53] LABS: ALBUMIN 3.9 gm/dl (3.4-5.0); ALKALINE PHOSPHATASE 73 U/L (45-117); ALT/SGPT 18 U/L (12-78); AST/SGOT 14 U/L (15-37); BLOOD UREA NITROGEN 10 mg/dl (7-18); CALCIUM 8.8 mg/dl (8.5-10.1); CARBON DIOXIDE 25 mmol/L (21-32); CREATININE 0.86 mg/dl (0.60-1.40); GLUCOSE 116 mg/dl (70-99); LIPASE 166 U/L (73-393); POTASSIUM 3.3 mmol/L (3.5-5.1); SODIUM 137 mmol/L (136-145); TOTAL PROTEIN 7.4 gm/dl (6.4-8.2)
[2017-11-07] MEDS ORDERED: POTASSIUM CHLORIDE 10 MEQ TABCR PO STA (04:20)
[2017-11-07] MEDS ORDERED: ONDANSETRON HOME PACK 4MG OD TAB PO ONE (04:30)
[2017-11-07] MEDS ORDERED: CAPSAICIN CR 0.075% 60 GM TUBE EXT STA (04:41)
[2017-11-07 05:46] VITALS: BP 96/57; PULSE 65; O2SAT 97
--- NOTE | 2017-11-07 05:52 | EMERGENCY ROOM VISIT NOTE ---
History First contact with patient: 02:55 Chief Complaint: CHEST PAIN Stated Complaint: UPSET STOMACH, CHEST PAIN, NAUSEA Nursing Triage Summary: Chest pain, N/V/D, shakes and weakness. Pt here for same sx 3 days ago. Followed MD's discharge and sx's continue. History of Present Illness The patient is a 37 year old male who presents to the Emergency Room with complaints of epigastric pain, nausea and vomiting for the past few days he was seen here the other day and had extensive workup which was unremarkable. Patient has not used any of his marijuana for the past few days. He used to smoke his marijuana daily. Patient had endoscopy and colonoscopy within the past 6 months and normal per patient. Patient is CTA the other day and was negative. Patient denies dyspnea, hematemesis, back pain, urinary symptoms, lower abdominal pain, fever, chills. Patient is quite tremulous appearing. Review of Systems An 10 system review of systems was completed with positives and pertinent negatives listed in the HPI. Past Medical/Surgical History Medical Problems: (1) Gastroesophageal reflux disease Surgical Problems: (1) S/P T&A (status post tonsillectomy and adenoidectomy) Family History Cancer Diabetes mellitus FHx: stroke Heart disease Social History Smoking Status: Current Every Day Smoker Alcohol Use: none Drug Use: marijuana Marital Status: Housing Status: lives with family Occupation Status: unemployed Current/Historical Medications No Active Prescriptions or Reported Meds Physical Exam Vital Signs Date Time Temp Pulse Resp B/P (MAP) Pulse Ox O2 Delivery O2 Flow Rate FiO2 11/07/17 05:46 65 18 96/57 97 Room Air 11/07/17 04:38 52 16 143/88 97 Room Air 11/07/17 03:20 60 11/07/17 03:14 98 Room Air 11/07/17 03:13 Room Air 11/07/17 03:13 Room Air 11/07/17 02:49 36.4 67 24 155/97 95 Room Air Physical Exam VITALS: Vitals are noted on the nurse's note and reviewed by myself. Vital signs stable. GENERAL: White male with tobacco odor, in no acute distress, nondiaphoretic, well-developed well-nourished. SKIN: The skin was without rashes, erythema, edema, or bruising. There is no tenting of the skin. Capillary reflex less than 2 seconds. HEAD: Normocephalic atraumatic. EARS: External auditory canals clear, tympanic membranes pearly yoo without erythema or effusion bilaterally. EYES: Pupils equal round and reactive to light and accommodation. Conjunctivae without injection, sclerae without icterus. Extraocular movements intact. NOSE: Patent, turbinates without inflammation or discharge. MOUTH: Mucous membranes moist. Pharynx without erythema or exudate. Uvula midline. Airway patent. Tongue does not deviate. NECK: Supple without nuchal rigidity. No lymphadenopathy. No thyromegaly. Cervical spine is nontender. No JVD. HEART: Regular rate and rhythm without murmurs gallops or rubs. LUNGS: Clear to auscultation bilaterally without wheezes, rales or rhonchi. No retractions or accessory muscle use. ABDOMEN: Positive bowel sounds x 4. Normal tympanic percussion. Soft, nontender, without masses or organomegaly. Roblero sign negative. No guarding or rebound tenderness. No CVA tenderness MUSCULOSKELETAL: No muscle atrophy, erythema, or edema noted. NEURO: Patient was alert and oriented to person place and time. Normal sensation to light and sharp touch. No focal neurological deficits. Medical Decision & Procedures Laboratory Results 11/07/17 03:17 Red Blood Count 5.19, Mean Corpuscular Volume 92.1, Mean Corpuscular Hemoglobin 32.4, Mean Corpuscular Hemoglobin Concent 35.1, Mean Platelet Volume 9.7, Neutrophils (%) (Auto) 76.3, Lymphocytes (%) (Auto) 12.4, Monocytes (%) (Auto) 10.4, Eosinophils (%) (Auto) 0.2, Basophils (%) (Auto) 0.4, Neutrophils # (Auto ) 9.79, Lymphocytes # (Auto) 1.59, Monocytes # (Auto) 1.34, Eosinophils # (Auto ) 0.03, Basophils # (Auto) 0.05 11/07/17 03:17 Test 11/07/17 03:17 11/07/17 03:22 White Blood Count 12.84 K/uL (4.8-10.8) Red Blood Count 5.19 M/uL (4.7-6.1) Hemoglobin 16.8 g/dL (14.0-18.0) Hematocrit 47.8 % (42-52) Mean Corpuscular Volume 92.1 fL (80-100) Mean Corpuscular Hemoglobin 32.4 pg (25-34) Mean Corpuscular Hemoglobin Concent 35.1 g/dl (32-36) Platelet Count 222 K/uL (130-400) Mean Platelet Volume 9.7 fL (7.4-10.4) Neutrophils (%) (Auto) 76.3 % Lymphocytes (%) (Auto) 12.4 % Monocytes (%) (Auto) 10.4 % Eosinophils (%) (Auto) 0.2 % Basophils (%) (Auto) 0.4 % Neutrophils # (Auto) 9.79 K/uL (1.4-6.5) Lymphocytes # (Auto) 1.59 K/uL (1.2-3.4) Monocytes # (Auto) 1.34 K/uL (0.11-0.59) Eosinophils # (Auto) 0.03 K/uL (0-0.5) Basophils # (Auto) 0.05 K/uL (0-0.2) RDW Standard Deviation 47.0 fL (36.4-46.3) RDW Coefficient of Variation 13.9 % (11.5-14.5) Immature Granulocyte % (Auto) 0.3 % Immature Granulocyte # (Auto) 0.04 K/uL (0.00-0.02) Anion Gap 6.0 mmol/L (3-11) Est Creatinine Clear Calc Drug Dose 106.1 ml/min Estimated GFR () 128.4 Estimated GFR (Non- 110.8 BUN/Creatinine Ratio 11.9 (10-20) Calcium Level 8.8 mg/dl (8.5-10.1) Total Bilirubin 0.6 mg/dl (0.2-1) Direct Bilirubin 0.1 mg/dl (0-0.2) Aspartate Amino Transf (AST/SGOT) 14 U/L (15-37) Alanine Aminotransferase (ALT/SGPT) 18 U/L (12-78) Alkaline Phosphatase 73 U/L (45-117) Troponin I < 0.015 ng/ml (0-0.045) Total Protein 7.4 gm/dl (6.4-8.2) Albumin 3.9 gm/dl (3.4-5.0) Lipase 166 U/L (73-393) Bedside Troponin I < 0.030 ng/ml (0-0.045) Medications Administered Medications (Trade) Dose Ordered Sig/Hermelindo Route Start Time Stop Time Status Last Admin Dose Admin Lidocaine HCl (Viscous Lidocaine 2% Soln) 10 ml NOW STAT PO 11/07/17 03:01 11/07/17 03:03 DC 11/07/17 03:25 10 ML Al Hydroxide/Mg Hydroxide (Maalox Susp) 30 ml NOW STAT PO 11/07/17 03:01 11/07/17 03:03 DC 11/07/17 03:25 30 ML Lorazepam (Ativan Inj) 1 mg NOW STAT IV 11/07/17 03:01 11/07/17 03:03 DC 11/07/17 03:25 1 MG Ondansetron HCl (Zofran Inj) 4 mg NOW STAT IV 11/07/17 03:04 11/07/17 03:05 DC 11/07/17 03:25 4 MG Sodium Chloride 1,000 ml @ 999 mls/hr Q1H1M STAT IV 11/07/17 03:04 11/07/17 04:04 DC 11/07/17 03:26 999 MLS/HR Potassium Chloride (Klor-Con M10) 20 meq NOW STAT PO 11/07/17 04:20 11/07/17 04:21 DC 11/07/17 04:38 20 MEQ Ondansetron HCl (ZOFRAN ODT 4MG Home Pack) 1 homepack UD ONCE PO 11/07/17 04:30 11/07/17 04:31 DC 11/07/17 04:38 1 HOMEPACK Capsaicin (Zostrix Crm) 1 appln NOW STAT EXT 11/07/17 04:41 11/07/17 04:42 DC 11/07/17 04:46 1 APPLN ED Course Prior records/ancillary studies reviewed. Triage Nursing notes reviewed. Additional history obtained from girlfriend. The patient's history was concerning for chest pain nausea vomiting. Differential diagnosis: Etiologies such as withdrawal from polysubstance abuse, gastroenteritis, gastritis, cardiac ischemia, aortic dissection, pulmonary embolism, pneumonia, pneumothorax, musculoskeletal, infections, pericarditis, myocarditis, esophageal rupture, gastrointestinal, as well as others were entertained. Physical examination: As above. ER treatment provided: GI cocktail, Ativan, Zofran, IV fluids On reassessment the patient felt better. Diagnostic interpretation by me: The electrocardiogram was negative for pathologic change. Normal sinus, normal intervals, no acute ST-T wave changes, rate of 55. Impression sinus bradycardia interpreted by myself The labs revealed stable H&H. Negative troponin. Mild hyperglycemia without DKA Leukocytosis most likely marginalization from vomiting Imaging studies: Chest x-ray with no acute consolidation, pneumothorax or free of my interpretation CT ANGIOGRAPHY OF THE CHEST, PULMONARY EMBOLUS PROTOCOL CLINICAL HISTORY: Elevated d-dimer. Left-sided chest pain. COMPARISON STUDY: Chest CT April 15, 2014 and chest radiograph performed earlier today. TECHNIQUE: Following IV administration of 93 mL of Optiray-320, helical axial images of the chest were obtained utilizing the pulmonary embolus protocol. Maximal intensity projections and sagittal and coronal reformats were viewed on an independent 3D workstation. IV contrast was administered without complication. A dose lowering technique was utilized adhering to the principles of ALARA. CT DOSE: 228.39 mGy.cm FINDINGS: No pulmonary emboli are identified. There is no evidence of thoracic aortic dissection. No pericardial effusion is noted. No enlarged axillary, mediastinal or hilar lymph nodes are present. The central airways are patent. There is no consolidation to suggest pneumonia. No pneumothorax or pleural effusion is noted. There is no pneumomediastinum. There is mild upper lobe predominant paraseptal and centrilobular emphysema. Bony thorax and upper abdomen are unremarkable. IMPRESSION: 1. No pulmonary emboli identified. 2. No acute intrathoracic findings. 3. Mild upper lobe predominant emphysema. Electronically signed by: Roe Cobb M.D. Exam and history seem consistent with nausea and vomiting with epigastric chest pain most likely polysubstance withdrawal versus gastritis in etiology. Patient quit smoking his marijuana and has been vomiting since. He was advised to try the capsaicin cream that was given to him in the ER. He was strongly encouraged to follow-up family care in a few days for further evaluation workup for his ongoing symptoms or here in the ER sooner for chest pain, difficulty breathing, worsening sinus symptoms or as needed. Patient had a CTA less than 2 days ago that was negative. He has had negative EKG and troponin. He is tolerating fluids. By the evaluation outlined above emergent etiologies such as cardiac ischemia, aortic dissection, pulmonary embolism, pneumonia, pneumothorax, pericarditis, myocarditis, gastrointestinal, as well as others were deemed relatively unlikely. The pt informed about the findings as listed above. All questions were answered and pleased with the treatment. Return instructions were outlined and the patient was discharged in stable condition. Referral: The patient was referred back to primary care physician for follow-up in 2 to 3 days for a recheck of the current condition. Case reviewed with my attending The chart was completed utilizing [email or web address] Speech voice recognition software. Grammatical errors, random word insertions, pronoun errors, and incomplete sentences are an occassional consequence of this system due to software limitations, ambient noise, and hardware issues. Any formal questions or concerns about the content, text, or information contained within the body of this dictation should be directly addressed to the physician business services assistant for clarification. Medical Decision as above Medication Reconcilliation Current Medication List: was personally reviewed by me Blood Pressure Screening Patient's blood pressure: Normal blood pressure Impression Primary Impression: Non-cardiac chest pain Additional Impressions: Nausea & vomiting Hypokalemia Marijuana abuse, continuous Departure Information Dispostion Home / Self-Care Condition GOOD Prescriptions No Active Prescriptions or Reported Meds Referrals No Doctor, Assigned (PCP) Patient Instructions My [facility] Additional Instructions DO NOT drive, drink alcohol, operate machinery, or perform dangerous activities today. You were given medications in the ER that can affect your ability to safely function or operate a vehicle. Apply capsaicin cream 2-3 times a day to the affected area, not on the face. Zofran(odansetron) tablets 4mg: Take one and allow it to dissolve in your mouth every four to six hours as needed for nausea or vomiting. Rest and drink plenty of fluids as tolerated. Slow sips of water or sports drinks are recommended instead of large amounts all at once. Continue current medications. Once your stomach is settled start with a clear liquid diet (jello, soup broth, etc.) and then advance as tolerated. You should avoid full, heavy meals for about 24 hrs from the time your symptoms resolved. Return to the ER for persistent vomiting, fevers, abdominal pain, chest pains, difficulty breathing, black or bloody stools, worsening of your condition, or as needed. Follow up with your primary physician in 2-3 days for a recheck of your current condition. Problem Qualifiers
--- NOTE | 2017-11-07 09:03 | DIAGNOSTIC IMAGING REPORT ---
SINGLE VIEW CHEST CLINICAL HISTORY: Atypical chest pain. FINDINGS: 2 AP, portable, upright chest radiographs are compared to chest x-ray and chest CT dated 11/05/2017. The examination is degraded by portable technique and patient rotation. The cardiomediastinal silhouette is unremarkable. Emphysema and chronic interstitial thickening are similar to previous. No airspace consolidation or large pleural effusion is identified. No pneumothorax is seen. The bony thorax is grossly intact. IMPRESSION: Emphysema with no acute cardiopulmonary abnormality. Electronically signed by: Terrence Gray M.D. 11/07/2017 9:01 AM Dictated Date/Time: 11/07/2017 9:00 AM
[2017-11-07] MEDS ORDERED: METO-157 PO (16:16)
== END 2017-11-07 06:12 | disposition home or self-care (01) ==
LOC: C.EDB 02:44
DX: R07.89 Other chest pain (principal); R11.2 Nausea with vomiting, unspecified; E87.6 Hypokalemia; F12.10 Cannabis abuse, uncomplicated; K21.9 Gastro-esophageal reflux disease without esophagitis; F17.210 Nicotine dependence, cigarettes, uncomplicated

== ENCOUNTER 2017-11-07 13:24 | Emergency (ER) | payer OTHER ==
[~2017-11-07] VITALS: Ht 167.6 cm; Wt 67.9 kg
[2017-11-07 13:30] VITALS: TEMP 37; Ht 167.6 cm; Wt 67.9 kg
[2017-11-07] MEDS ORDERED: SODIUM CHLORIDE 0.9% 1000ML 1,000 ML IV ONE ×2 (13:45→15:30)
[2017-11-07] MEDS ORDERED: GI COCKTAIL PO ONE (13:45)
[2017-11-07] MEDS ORDERED: LIDOCAINE HCL 2% VISC SOLN 20 ML UDC ONE (13:52)
[2017-11-07] MEDS ORDERED: ALUMINUM/MAGNESIUM SUSP 30 ML UDC ONE (13:52)
[2017-11-07 14:06] LABS: BASO % 0.2 %; BASO ABS # 0.02 K/uL (0-0.2); HEMATOCRIT 46.7 % (42-52); HEMOGLOBIN 16.3 g/dL (14.0-18.0); IG# 0.03 K/uL (0.00-0.02); LYMPH % 12.4 %; LYMPH ABS # 1.18 K/uL (1.2-3.4); MEAN CELL VOLUME 92.3 fL (80-100); MEAN CORPUSCULAR HEMOGLOBIN 32.2 pg (25-34); MEAN CORPUSCULAR HGB CONC 34.9 g/dl (32-36); MEAN PLATELET VOLUME 9.9 fL (7.4-10.4); MONO ABS # 0.95 K/uL (0.11-0.59); NEUT % 77.1 %; NEUT ABS # 7.33 K/uL (1.4-6.5); PLATELET COUNT 215 K/uL (130-400); RED CELL DISTRIBUTION WIDTH SD 46.9 fL (36.4-46.3); WHITE BLOOD COUNT 9.51 K/uL (4.8-10.8)
[2017-11-07 14:17] LABS: ALBUMIN 3.6 gm/dl (3.4-5.0); CALCIUM 8.6 mg/dl (8.5-10.1); CREATININE 0.96 mg/dl (0.60-1.40); POTASSIUM 3.3 mmol/L (3.5-5.1)
[2017-11-07 14:19] LABS: TOTAL PROTEIN 6.8 gm/dl (6.4-8.2)
--- NOTE | 2017-11-07 14:20 | DIAGNOSTIC IMAGING REPORT ---
PA CHEST WITH ABDOMINAL SERIES CLINICAL HISTORY: Epigastric abdominal pain. FINDINGS: A PA chest radiograph is compared to performed earlier the same day 11/07/2017. And correlated with chest CT dated 11/05/2017 The cardiomediastinal silhouette is unremarkable. Emphysema and chronic interstitial thickening are similar to previous.. No airspace consolidation or pleural effusion is identified. No pneumothorax is seen. The bony thorax is grossly intact. Supine and erect abdominal radiographs are compared to study dated 09/07/2017. There is a nonobstructed abdominal bowel gas pattern. No evidence of intraperitoneal free air is seen. Excreted IV contrast is present in the bladder. There are no abnormal abdominal calcifications. The lumbosacral spine and bony pelvis appear intact. IMPRESSION: 1. Emphysema with no active disease in the chest. No change from study performed earlier today. 2. Nonobstructed abdominal bowel gas pattern. Electronically signed by: Terrence Gray M.D. 11/07/2017 2:19 PM Dictated Date/Time: 11/07/2017 2:17 PM
[2017-11-07 15:06] VITALS: O2SAT 97
[2017-11-07] MEDS ORDERED: KETOROLAC TROMETHAMINE 30 MG/ML VIAL IV STA (15:21)
[2017-11-07] MEDS ORDERED: ACETAMINOPHEN IV 1,000 MG in EMPTY BAG 0 ML IV ONE (15:30)
[2017-11-07] MEDS ORDERED: ACETAMINOPHEN 1000 MG/100 ML IV IV ONE (15:33)
--- NOTE | 2017-11-07 15:38 | DIAGNOSTIC IMAGING REPORT ---
CT SCAN OF THE ABDOMEN AND PELVIS WITHOUT IV CONTRAST CLINICAL HISTORY: Epigastric abdominal pain. Elevated lipase. COMPARISON STUDY: Abdominal CT dated 04/30/1715. TECHNIQUE: CT scan of the abdomen and pelvis is performed from the lung bases to the proximal femora. Images are reviewed in the axial, sagittal, and coronal planes. IV contrast was not administered for this examination as per the referring clinician. Note that the examination was performed in significantly suboptimal fashion without IV contrast. A dose lowering technique was utilized adhering to the principles of ALARA. CT DOSE: 280.57 mGy.cm FINDINGS: Lung bases: The heart is normal in size and without pericardial effusion. The lung bases are clear. Liver: The unenhanced liver is normal in size, contour, and attenuation. There is no intrahepatic biliary ductal dilatation. Gallbladder: Unremarkable. Spleen: Normal in size and attenuation. Pancreas: The unenhanced pancreas is normal as visualized. No peripancreatic stranding or fluid is seen. There is no peripancreatic collection identified. Adrenal glands: Unremarkable. Kidneys: The unenhanced kidneys are normal in size and without hydronephrosis. There are no renal calculi identified. There is no evidence of contour deforming renal mass lesion. Abdominal vasculature: The abdominal aorta is normal in course and caliber noting mild to moderate atherosclerotic calcification. Bowel: The small bowel and colon are normal in course and caliber. The appendix is well-visualized and normal. Peritoneum: There is no intraperitoneal free air or abdominal ascites. Lymphadenopathy: None. Pelvic viscera: The bladder is decompressed and grossly unremarkable. The prostate and seminal vesicles are normal as visualized. Skeletal structures: No lytic or blastic lesions are seen. IMPRESSION: 1. Suboptimal examination without IV contrast. 2. There are no acute infectious or inflammatory findings in the abdomen or pelvis. Specifically, there is no CT evidence of acute pancreatitis. Clinical laboratory correlation will be required. Electronically signed by: Terrence Gray M.D. 11/07/2017 3:36 PM Dictated Date/Time: 11/07/2017 3:32 PM
[2017-11-07] MEDS ORDERED: METOCLOPRAMIDE HCL INJ 5 MG/ML 2 ML VIAL IV. STA (16:12)
[2017-11-07] MEDS ORDERED: DiphenhydrAMINE HCL 50 MG/ML VIAL IV STA (16:12)
[2017-11-07] MEDS ORDERED: METO-157 PO (16:16)
[2017-11-07 16:56] VITALS: BP 139/84; PULSE 58; O2SAT 97
--- NOTE | 2017-11-07 20:06 | EMERGENCY ROOM VISIT NOTE ---
History First contact with patient: 13:34 Chief Complaint: CARDIAC ASSESSMENT Stated Complaint: CHEST/ABDOMINAL PAIN Nursing Triage Summary: pt arrives via ems pt reports that for past 3 days has had abdominal pain that radiates up into chest , pt reports feeling nauseated all the time with decreased po intake over last 3 days . pt reports pain became worse today History of Present Illness The patient is a 37 year old male who presents to the Emergency Room with complaints of 3 days of epigastric abdominal pain and chest pain. The patient has been seen 2 times at this facility in the past 48 hours with this complaint where CT angiogram of the chest and blood work have been essentially normal. The patient states that although he was here 12 hours ago his pain has worsened , prompting him to return to the ER. He states that he has nauseated and has not been able to eat or drink well the past few days. The patient has a past history of hyperemesis secondary to daily marijuana usage. The patient has not had fever or chills. He rates his overall discomfort a 10/10 and has not taken anything for pain in the past several hours. Review of Systems More than 10 systems were reviewed and otherwise negative with the exception of history of present illness. Past Medical/Surgical History Medical Problems: (1) Gastroesophageal reflux disease Surgical Problems: (1) S/P T&A (status post tonsillectomy and adenoidectomy) Family History Cancer Diabetes mellitus FHx: stroke Heart disease Social History Smoking Status: Current Every Day Smoker Alcohol Use: none Drug Use: marijuana Marital Status: Housing Status: lives with family Occupation Status: unemployed Current/Historical Medications Scheduled Metoclopramide (Reglan), 10 MG PO Q6H Physical Exam Vital Signs Date Time Temp Pulse Resp B/P (MAP) Pulse Ox O2 Delivery O2 Flow Rate FiO2 11/07/17 16:56 58 22 139/84 97 11/07/17 15:39 73 16 149/77 99 Room Air 11/07/17 15:06 97 Room Air 11/07/17 14:22 57 11/07/17 13:30 37.0 64 20 123/89 98 Room Air Physical Exam VITALS: Vitals are noted on the nurse's note and reviewed by myself. Vital signs stable. GENERAL: White male who appears in no acute distress. He is laying on his left side in his emergency department bed. HEAD: Normocephalic atraumatic. MOUTH: Mucous membranes moist. Tonsils are not enlarged. Pharynx without erythema, blood, or exudate. Uvula midline. Airway patent. NECK: Supple without nuchal rigidity. No lymphadenopathy. No thyromegaly. Cervical spine is nontender. HEART: Regular rate and rhythm without murmurs gallops or rubs. LUNGS: Clear to auscultation bilaterally without wheezes, rales or rhonchi. No retractions or accessory muscle use. ABDOMEN: Positive normal bowel sounds x 4. Soft with vague tenderness on palpation. No distinct point tenderness. No rebound or guarding. MUSCULOSKELETAL: No muscle atrophy, erythema, or edema noted. Full range of motion in all extremities. Medical Decision & Procedures ER Provider Diagnostic Interpretation: PA CHEST WITH ABDOMINAL SERIES CLINICAL HISTORY: Epigastric abdominal pain. FINDINGS: A PA chest radiograph is compared to performed earlier the same day 11/07/2017. And correlated with chest CT dated 11/05/2017 The cardiomediastinal silhouette is unremarkable. Emphysema and chronic interstitial thickening are similar to previous.. No airspace consolidation or pleural effusion is identified. No pneumothorax is seen. The bony thorax is grossly intact. Supine and erect abdominal radiographs are compared to study dated 09/07/2017. There is a nonobstructed abdominal bowel gas pattern. No evidence of intraperitoneal free air is seen. Excreted IV contrast is present in the bladder. There are no abnormal abdominal calcifications. The lumbosacral spine and bony pelvis appear intact. IMPRESSION: 1. Emphysema with no active disease in the chest. No change from study performed earlier today. 2. Nonobstructed abdominal bowel gas pattern. CT SCAN OF THE ABDOMEN AND PELVIS WITHOUT IV CONTRAST CLINICAL HISTORY: Epigastric abdominal pain. Elevated lipase. COMPARISON STUDY: Abdominal CT dated 04/30/1715. TECHNIQUE: CT scan of the abdomen and pelvis is performed from the lung bases to the proximal femora. Images are reviewed in the axial, sagittal, and coronal planes. IV contrast was not administered for this examination as per the referring clinician. Note that the examination was performed in significantly suboptimal fashion without IV contrast. A dose lowering technique was utilized adhering to the principles of ALARA. CT DOSE: 280.57 mGy.cm FINDINGS: Lung bases: The heart is normal in size and without pericardial effusion. The lung bases are clear. Liver: The unenhanced liver is normal in size, contour, and attenuation. There is no intrahepatic biliary ductal dilatation. Gallbladder: Unremarkable. Spleen: Normal in size and attenuation. Pancreas: The unenhanced pancreas is normal as visualized. No peripancreatic stranding or fluid is seen. There is no peripancreatic collection identified. Adrenal glands: Unremarkable. Kidneys: The unenhanced kidneys are normal in size and without hydronephrosis. There are no renal calculi identified. There is no evidence of contour deforming renal mass lesion. Abdominal vasculature: The abdominal aorta is normal in course and caliber noting mild to moderate atherosclerotic calcification. Bowel: The small bowel and colon are normal in course and caliber. The appendix is well-visualized and normal. Peritoneum: There is no intraperitoneal free air or abdominal ascites. Lymphadenopathy: None. Pelvic viscera: The bladder is decompressed and grossly unremarkable. The prostate and seminal vesicles are normal as visualized. Skeletal structures: No lytic or blastic lesions are seen. IMPRESSION: 1. Suboptimal examination without IV contrast. 2. There are no acute infectious or inflammatory findings in the abdomen or pelvis. Specifically, there is no CT evidence of acute pancreatitis. Clinical laboratory correlation will be required. Laboratory Results 11/07/17 13:38 Red Blood Count 5.06, Mean Corpuscular Volume 92.3, Mean Corpuscular Hemoglobin 32.2, Mean Corpuscular Hemoglobin Concent 34.9, Mean Platelet Volume 9.9, Neutrophils (%) (Auto) 77.1, Lymphocytes (%) (Auto) 12.4, Monocytes (%) (Auto) 10.0, Eosinophils (%) (Auto) 0.0, Basophils (%) (Auto) 0.2, Neutrophils # (Auto ) 7.33, Lymphocytes # (Auto) 1.18, Monocytes # (Auto) 0.95, Eosinophils # (Auto ) 0.00, Basophils # (Auto) 0.02 11/07/17 13:38 Test 11/07/17 13:38 11/07/17 13:52 White Blood Count 9.51 K/uL (4.8-10.8) Red Blood Count 5.06 M/uL (4.7-6.1) Hemoglobin 16.3 g/dL (14.0-18.0) Hematocrit 46.7 % (42-52) Mean Corpuscular Volume 92.3 fL (80-100) Mean Corpuscular Hemoglobin 32.2 pg (25-34) Mean Corpuscular Hemoglobin Concent 34.9 g/dl (32-36) Platelet Count 215 K/uL (130-400) Mean Platelet Volume 9.9 fL (7.4-10.4) Neutrophils (%) (Auto) 77.1 % Lymphocytes (%) (Auto) 12.4 % Monocytes (%) (Auto) 10.0 % Eosinophils (%) (Auto) 0.0 % Basophils (%) (Auto) 0.2 % Neutrophils # (Auto) 7.33 K/uL (1.4-6.5) Lymphocytes # (Auto) 1.18 K/uL (1.2-3.4) Monocytes # (Auto) 0.95 K/uL (0.11-0.59) Eosinophils # (Auto) 0.00 K/uL (0-0.5) Basophils # (Auto) 0.02 K/uL (0-0.2) RDW Standard Deviation 46.9 fL (36.4-46.3) RDW Coefficient of Variation 14.0 % (11.5-14.5) Immature Granulocyte % (Auto) 0.3 % Immature Granulocyte # (Auto) 0.03 K/uL (0.00-0.02) Anion Gap 7.0 mmol/L (3-11) Est Creatinine Clear Calc Drug Dose 95.0 ml/min Estimated GFR () 116.6 Estimated GFR (Non- 100.6 BUN/Creatinine Ratio 9.1 (10-20) Calcium Level 8.6 mg/dl (8.5-10.1) Total Bilirubin 0.5 mg/dl (0.2-1) Aspartate Amino Transf (AST/SGOT) 11 U/L (15-37) Alanine Aminotransferase (ALT/SGPT) 18 U/L (12-78) Alkaline Phosphatase 70 U/L (45-117) Total Protein 6.8 gm/dl (6.4-8.2) Albumin 3.6 gm/dl (3.4-5.0) Globulin 3.2 gm/dl (2.5-4.0) Albumin/Globulin Ratio 1.1 (0.9-2) Lipase 910 U/L (73-393) Bedside Troponin I < 0.030 ng/ml (0-0.045) Medications Administered Medications (Trade) Dose Ordered Sig/Hermelindo Route Start Time Stop Time Status Last Admin Dose Admin Miscellaneous Medication (Gi Cocktail) 24 ml NOW ONCE PO 11/07/17 13:45 11/07/17 13:47 DC 11/07/17 13:57 24 ML Sodium Chloride 1,000 ml @ 999 mls/hr Q1H1M ONCE IV 11/07/17 13:45 11/07/17 14:45 DC 11/07/17 13:58 999 MLS/HR Ketorolac Tromethamine (Toradol Inj) 30 mg NOW STAT IV 11/07/17 15:21 11/07/17 15:22 DC 11/07/17 15:34 30 MG Acetaminophen 1000 mg/Empty Bag 100 ml @ 400 mls/hr NOW ONCE IV 11/07/17 15:30 11/07/17 15:44 DC 11/07/17 15:35 400 MLS/HR Sodium Chloride 1,000 ml @ 999 mls/hr Q1H1M ONCE IV 11/07/17 15:30 11/07/17 16:30 DC 11/07/17 15:30 999 MLS/HR Diphenhydramine HCl (Benadryl Inj) 25 mg NOW STAT IV 11/07/17 16:12 11/07/17 16:13 DC 11/07/17 16:21 25 MG Metoclopramide HCl (Reglan Inj) 10 mg NOW STAT IV. 11/07/17 16:12 11/07/17 16:13 DC 11/07/17 16:21 10 MG ECG Per My Interpretation Change: Normal sinus rhythm @71 bpm Normal ECG When compared with ECG of 07-NOV-2017 03:34, (unconfirmed) No significant change was found ED Course Physical exam and history were performed. Nursing notes, EMR, and Medication List were personally reviewed. Patient appears to have chest pain abdominal pain returning him to the emergency department. The patient has been seen several times here with extensive workup that has been essentially negative. 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 The patient does not appear toxic on examination. IV access was established and labs were obtained. Patient was hydrated with normal saline and given a GI cocktail. X-rays were performed. He was placed on the cardiac exercise physiologist. EKG is as above and was without ST elevation. He was given IV Tylenol and IV Toradol for comfort. The patient's blood work is as above and was reviewed. He does not have a significantly elevated white blood cell count, gross anemia, bandemia, or significant electrolyte imbalance. Transaminases are not diagnostic. Troponin is negative. He does have a mild elevation of his lipase at 910, which appears to be increased from about 12 hours ago. Out of concern for the possibility of an acute pancreatitis I did elect to perform a CT scan of the patient's abdomen and pelvis. The patient's CT scan is as above and does not show evidence of acute pancreatitis or other etiology of his symptoms. His chest x-ray was also without acute findings. I discussed the patient with my attending physician, Dr. Mares, and with case management. On reevaluation the patient does not appear to be in any worsening condition. His abdomen is without distinct focal tenderness and I do not suspect a surgical process. At this time he does not meet criteria for inpatient stay. Evidently the patient does have an outpatient GI with [facility]. The patient will need to have very close follow-up with his primary care physician or GI in the morning. The patient will need repeat blood work to ensure improvement of his labs. I did recommend a liquid only diet and will give him a course of Reglan as this seems to have helped him in the past. The patient voiced understanding of this plan and rated his discomfort a 9/10 at the time of departure. The chart was completed utilizing [employer] Speech Voice Recognition Software. Grammatical errors, random word insertions, pronoun errors, and incomplete sentences are an occasional consequence of this system due to software limitations, ambient noise, and hardware issues. Any formal questions or concerns about the content, text, or information contained within the body of this dictation should be directly addressed to the provider for clarification. . Medical Decision Differential diagnosis: Etiologies such as appendicitis, diverticulitis, PUD, biliary pathology, UTI, pancreatitis, obstruction, mesenteric ischemia, aortic pathology, infections, inflammatory bowel disease, renal colic, as well as others were entertained. Impression Primary Impression: Non-cardiac chest pain Additional Impressions: Elevated lipase Epigastric abdominal pain Nausea Departure Information Dispostion Home / Self-Care Condition GOOD Prescriptions Metoclopramide (Reglan) 10 Mg Tab 10 MG PO Q6H for Nausea or Vomiting, #12 TAB NAUSEA Prov: Rolando Mason PA-C 11/07/17 Forms IMPORTANT VISIT INFORMATION Patient Instructions My [facility] Additional Instructions You were seen and evaluated today on an emergency basis only. This is not a substitute for, or an effort to provide, complete comprehensive medical care. It is not possible to recognize and treat all injuries or illnesses in a single emergency department visit. For this reason it is recommended that you followup with your primary care physician or production control analyst tomorrow for a recheck. Your lipase, a measurement of your pancreas function, was slightly elevated at 910 today. We recommend that you have this repeated tomorrow to ensure that it improves. We recommend a liquid only diet for the next 48 hours. Continue your at-home medications. You may use Reglan 10 mg by mouth every 6 hours for nausea or vomiting. You may combine this with 25 mg of [id number] Benadryl to help with your symptoms. You are welcome to return to the emergency department anytime with new, worsening, or concerning symptoms. Problem Qualifiers
== END 2017-11-07 16:56 | disposition home or self-care (01) ==
LOC: EDBD 13:24 → C.EDA 13:25
DX: R07.89 Other chest pain (principal); R79.89 Other specified abnormal findings of blood chemistry; R10.13 Epigastric pain; R11.0 Nausea; K21.9 Gastro-esophageal reflux disease without esophagitis; F17.200 Nicotine dependence, unspecified, uncomplicated; Z90.89 Acquired absence of other organs; Z83.3 Family history of diabetes mellitus; Z82.0 Family history of epilepsy and other diseases of the nervous system; Z79.899 Other long term (current) drug therapy

== ENCOUNTER 2020-11-06 19:44 | Observation (INO) ==
[2020-11-06] MEDS ORDERED: ONDANSETRON INJ 2 MG/ML 2 ML VIAL IV STA (20:06)
[2020-11-06] MEDS ORDERED: SODIUM CHLORIDE 0.9% 1000ML 1,000 ML IV STA (20:06)
[2020-11-06] MEDS ORDERED: PROMETHAZINE 12.5 MG/50.5 ML BAG IV STA (20:06)
[2020-11-06] MEDS ORDERED: ACETAMINOPHEN 1000 MG/100 ML IV IV STA (20:08)
--- NOTE | 2020-11-06 20:15 | Emergency Department Note ---
Impression & Plan Epigastric abdominal pain, Vomiting, Acute dehydration, Leukocytosis ED Provider Note HiNAME: ELIZABET CRAVEN AGE: 40 SEX: M : 1980 ARRIVES VIA: Walk-In INFORMANT: [Patient] ED PROVIDER(S): [Terrence Whitehead MD] CHIEF COMPLAINT: Abdominal pain HISTORY OF PRESENT ILLNESS: The patient is a 40-year-old male presents to the ER with a 4 or so days of epigastric abdominal pain and vomiting. He rates his abdominal pain as a 9 on a scale of 1-10. The pain is constant and nonradiating. He has not been able to eat or drink. There has been some occasional diarrhea, no blood in the stool. He states his vomitus has not been bloody. There has been no fever. He has had no cough or congestion. The patient has a history of similar issues although he cannot recall feeling this badly. He does not use marijuana but states his marijuana use is quite sporadic. The patient believes that he worsened significantly in the last 24 hours, he presents for symptom control and he is worried about dehydration. He states he has no history of previous abdominal surgeries. REVIEW OF SYSTEMS: See HPI for pertinent positives and negatives. A total of ten systems were reviewed and were otherwise negative. PMHx/PSHx: See Below SOCIAL HISTORY: See Below. PHYSICAL EXAM: GENERAL: Patient is in moderate distress from pain. HEENT: No acute trauma, normocephalic atraumatic, mucous membranes moist, no nasal congestion, no scleral icterus. NECK: No stridor, no adenopathy, no meningismus, trachea is midline. LUNGS: Clear to auscultation bilaterally, no wheeze, no rhonchi, breath sounds equal. HEART: Mildly tachycardic, regular rhythm, no murmurs. ABDOMEN: Soft, tender primarily in the epigastrium, bowel sounds positive, no hernias, no peritonitis. EXTREMITIES: No cyanosis or edema, full range of motion of all the joints without pain or difficulty, no signs for acute trauma. NEUROLOGIC: Oriented x 3, no acute motor or sensory deficits, no focal weakness. SKIN: No rash, no jaundice, no diaphoresis. DIFFERENTIAL DIAGNOSIS: Appendicitis, testicular torsion, infections, diverticulitis, UTI, obstruction, mesenteric ischemia, aortic pathology, inflammatory bowel disease, renal colic, PUD, pancreatitis, biliary pathology, hernia, volvulus, constipation, excessive marijuana use, as well as other pathologies. EMERGENCY DEPARTMENT COURSE/PROCEDURES: ECG: Indication was abdominal pain. The ECG shows a sinus tachycardia with a rate of 101. There is poor R wave progression. There is some baseline artifact. There is no ST elevation, no PVCs. The QTc is 440. Continuous Cardiac Monitoring: An order was placed for continuous cardiac monitoring. The monitor shows a rate of 103 with sinus tachycardia. MEDICAL DECISION MAKING: There is a mild leukocytosis, this could be consistent with infection or just his pain. There is a hemoglobin at 18.9, likely consistent with dehydration. There is a normal platelet count. No significant electrolyte abnormality or kidney failure. Lactic acid level is not elevated making bowel ischemia less likely. There is no worrisome liver enzyme elevation. No evidence for pancreatitis. ECG shows a sinus tachycardia, no acute ischemia. Cardiac enzyme testing x1 is not consistent with acute cardiac injury. Abdominal and pelvis CT does not show any bowel obstruction or free air. The gallbladder was thought possibly stone failed. Gallbladder ultrasound shows a normal gallbladder, no gallstones or evidence for acute cholecystitis. On exam, the patient was uncomfortable and tender in the epigastrium. He was not febrile, there was no true peritonitis. The patient received IV saline, 1 L. He was then given an additional 500 cc IV saline bolus. He was given IV Phenergan, IV Zofran. He received IV morphine, IV Toradol and IV Tylenol. He was eventually given IV Dilaudid for additional pain control. He was given IV Pepcid for stomach upset. Despite the numerous medications given, the patient is still having significant symptoms. I do not think he is safe for discharge home. The cause for the patient's presentation is unclear. I question whether this could be marijuana overuse syndrome. I did speak with the patient and case management. The on-call hospitalist has been consulted. Past Med/Surg History Medical History Intractable vomiting Marijuana abuse, continuous Surgical History S/P T&A (status post tonsillectomy and adenoidectomy) Social History Smoking Status: Current every day smoker Preferred Language: Kinyarwanda Feels Safe at Home: Yes Allergies Allergies Allergy/AdvReac Type Severity Reaction Status Date / Time prochlorperazine AdvReac Unknown UNKNOWN Verified 11/06/20 20:06 Home Meds Home Medications Medication Instructions Recorded Confirmed No Known Home Medications 05/17/18 11/06/20 Results & Data (ED) Vital Signs Vital Signs - 24 hr 11/06/20 19:49 11/06/20 22:33 11/06/20 23:00 Temperature 37.0 C Temperature Source Temporal Artery Scan Pulse Rate 130 H Pulse Rate [Apical] 67 61 Pulse Rhythm [Apical] Regular Regular Pulse Strength [Apical] Normal Normal Respiratory Rate 20 16 21 Respiratory Effort / Characteristics Non-Labored Non-Labored Spontaneous Respiratory Depth Normal Normal Normal Respiratory Pattern Regular Regular Blood Pressure 138/94 Blood Pressure [Right Arm] 141/83 H 131/79 Blood Pressure Mean 108 Blood Pressure Mean [Right Arm] 102 96 Blood Pressure Position [Right Arm] Lying Pulse Oximetry 95 97 94 Oxygen Delivery Method Room Air Room Air Room Air Sepsis Recent Fever Within 48 Hours No Sepsis New/Unexplained Change in Mental Status N/A Sepsis Action Taken by Nursing No Action Required 11/07/20 00:14 Temperature Temperature Source Pulse Rate Pulse Rate [Apical] 66 Pulse Rhythm [Apical] Regular Pulse Strength [Apical] Normal Respiratory Rate 18 Respiratory Effort / Characteristics Non-Labored Spontaneous Respiratory Depth Normal Respiratory Pattern Blood Pressure Blood Pressure [Right Arm] 111/75 Blood Pressure Mean Blood Pressure Mean [Right Arm] 87 Blood Pressure Position [Right Arm] Lying Pulse Oximetry 97 Oxygen Delivery Method Room Air Sepsis Recent Fever Within 48 Hours Sepsis New/Unexplained Change in Mental Status Sepsis Action Taken by Jail Medications Current Medication List: was personally reviewed by me Laboratory Data Attestation: I reviewed the patient's lab results. Result diagrams: 11/06/20 20:31 11/06/20 20:31 Lab Results 11/06/20 11/06/20 11/06/20 Range/Units 20:31 20:31 20:31 WBC 12.90 H (4.8-10.8) K/uL RBC 5.99 (4.7-6.1) M/uL Hgb 18.9 H (14.0-18.0) g/dL Hct 51.4 (42-52) % MCV 85.8 (80-100) fL MCH 31.6 (25-34) pg MCHC 36.8 H (32-36) g/dL RDW Std Deviation 42.2 (36.4-46.3) fL RDW Coeff of Claudio 13.5 (11.5-14.5) % Plt Count 269 (130-400) K/uL MPV 9.7 (7.4-10.4) fL Immature Gran % (Auto) 0.2 % Neut % (Auto) 70.6 % Lymph % (Auto) 17.7 % Woodson % (Auto) 10.9 % Eos % (Auto) 0.4 % Baso % (Auto) 0.2 % Neut # (Auto) 9.11 H (1.4-6.5) K/uL Lymph # (Auto) 2.28 (1.2-3.4) K/uL Woodson # (Auto) 1.40 H (0.11-0.59) K/uL Eos # (Auto) 0.05 (0-0.5) K/uL Baso # (Auto) 0.03 (0-0.2) K/uL Immature Gran # (Auto) 0.03 H (0.00-0.02) K/uL Sodium 138 (136-145) mmol/L Potassium 3.5 (3.5-5.1) mmol/L Chloride 104 (98-107) mmol/L Carbon Dioxide 27 (21-32) mmol/L Anion Gap 7.0 (3-11) BUN 14 (7-18) mg/dl Creatinine 1.07 (0.6-1.4) mg/dl Est Cr Clr Drug Dosing 91.8 ml/min Est GFR ( Amer) 100.1 Est GFR (Non-Af Amer) 86.4 BUN/Creatinine Ratio 13.2 (10-20) Glucose 121 H (70-99) mg/dl Lactate 1.5 (0.4-2.0) mmol/L Calcium 9.9 (8.5-10.1) mg/dl Total Bilirubin 0.9 (0.2-1) mg/dl AST 21 (15-37) U/L ALT 46 (12-78) U/L Alkaline Phosphatase 96 (45-117) U/L Troponin I < 0.015 (0-0.045) ng/ml Total Protein 8.4 H (6.4-8.2) gm/dl Albumin 4.8 (3.4-5.0) gm/dl Globulin 3.6 (2.5-4.0) gm/dl Albumin/Globulin Ratio 1.3 (0.9-2) Lipase 162 (73-393) U/L Administered Medications Sodium Chloride (Nss 1000ml) 1,000 mls @ 125 mls/hr IV .Q8H STA Stop: 11/07/20 04:05 Last Admin: 11/06/20 20:36 Dose: 125 mls/hr Documented by: [id number] Morphine Sulfate (Morphine Sulfate 4 Mg/Ml 1 Ml Carp\Vial) 4 mg IV Q15M PRN PRN Reason: Pain Stop: 11/20/20 20:05 Last Admin: 11/07/20 00:12 Dose: 4 mg Documented by: [id number] Admin: 11/06/20 20:36 Dose: 4 mg Documented by: [id number] Discontinued Medications Acetaminophen (Acetaminophen 1000 Mg/100 Ml Iv) 1,000 mg IV NOW STA Stop: 11/06/20 20:09 Last Admin: 11/06/20 20:36 Dose: 1,000 mg Documented by: [id number] Famotidine (Famotidine 20mg/5ml Iv Push) 20 mg IV ONE STA Stop: 11/06/20 23:41 Last Admin: 11/07/20 00:08 Dose: 20 mg Documented by: [id number] Hydromorphone HCl (Hydromorphone Inj 0.5 Mg/0.5 Ml Syr) 0.5 mg IV NOW STA Stop: 11/06/20 22:51 Last Admin: 11/06/20 23:01 Dose: 0.5 mg Documented by: [id number] Promethazine HCl (Phenergan) 12.5 mg in 50.5 mls @ 202 mls/hr IV NOW STA Stop: 11/06/20 20:20 Last Infusion: 11/06/20 20:55 Dose: 0 mls/hr Documented by: [id number] Admin: 11/06/20 20:35 Dose: 202 mls/hr Documented by: [id number] Sodium Chloride (Nss 1000ml) 500 mls @ 999 mls/hr IV .Q31M ONE Stop: 11/07/20 00:10 Last Admin: 11/07/20 00:08 Dose: 999 mls/hr Documented by: [id number] Ioversol (Optiray 300 100ml) 85 ml IV ONCE ONE Stop: 11/06/20 22:07 Last Admin: 11/06/20 22:07 Dose: 85 ml Documented by: [id number] Ketorolac Tromethamine (Ketorolac Tromethamine 15 Mg/Ml Vial) 15 mg IV NOW STA Stop: 11/06/20 22:51 Last Admin: 11/06/20 23:02 Dose: 15 mg Documented by: [id number] Ondansetron HCl (Ondansetron Inj 2 Mg/Ml 2 Ml Vial) 4 mg IV NOW STA Stop: 11/06/20 20:07 Last Admin: 11/06/20 20:35 Dose: 4 mg Documented by: [id number] Imaging Data Radiologist's Impression: Chest X-Ray 11/06/20 20:07 XR chest 1V portable CLINICAL HISTORY: Abdominal pain. COMPARISON STUDY: Chest radiograph May 17, 2018. FINDINGS: Lung volumes are normal. Lungs are clear. There is no pneumothorax or pleural effusion. Cardiac size is normal. Mediastinal contours are normal. There is no evidence for pulmonary edema. Upper lobe predominant emphysema is present. IMPRESSION: No acute cardiopulmonary findings. ACT 112: Negative or not required by law. Electronically signed by: Roe Cobb M.D. 11/06/2020 8:31 PM Abdominal and pelvis CT with IV contrast: There is cholelithiasis or gallbladder debris suspected. No evidence for pancreatitis. The appendix was unremarkable. No colitis. No bowel obstruction. Kidneys are within normal limits. Ultrasound of the gallbladder: No gallstones or biliary ductal dilatation. Discharge Plan Visit Data Chief Complaint: Abdominal Pain Stated Complaint: abd pain, vomiting ED Provider: Terrence Whitehead Discharge Problem: Epigastric abdominal pain, Vomiting, Acute dehydration, Leukocytosis Patient Disposition: Admitted As Inpatient Condition: Fair Forms Stand Alone Forms: [place] Prescriptions Prescriptions: No Action No Known Home Medications RF: 0 Referrals Referrals: PCP,NO [Primary Care Provider] - Discharge Problem: Vomiting Qualifiers: Vomiting type: unspecified Vomiting Intractability: non-intractable Nausea presence: with nausea Qualified Code(s): R11.2 - Nausea with vomiting, unspecified Leukocytosis Qualifiers: Leukocytosis type: unspecified Qualified Code(s): D72.829 - Elevated white blood cell count, unspecified
--- NOTE | 2020-11-06 20:32 | XRay Report ---
XR chest 1V portable CLINICAL HISTORY: Abdominal pain. COMPARISON STUDY: Chest radiograph May 17, 2018. FINDINGS: Lung volumes are normal. Lungs are clear. There is no pneumothorax or pleural effusion. Car diac size is normal. Mediastinal contours are normal. There is no evidence for pulmonary edema. Upper lobe predominant emphysema is present. IMPRESSION: No acute cardiopulmonary findings. ACT 112: Negative or not required by law. Electronically signed by: Roe Cobb M.D. 11/06/2020 8:31 PM
[2020-11-06] MEDS: MoRPHine SULFATE 4 MG/ML 1 ML CARP\\VIAL IV PRN (20:36)
[2020-11-06 20:42] LABS: Basophils # (auto) 0.03 K/uL (0-0.2); Basophils % (auto) 0.2 %; Eosinophils # (auto) 0.05 K/uL (0-0.5); Eosinophils % (auto) 0.4 %; Hematocrit (blood only) 51.4 % (42-52); Hemoglobin 18.9 g/dL (14.0-18.0); Immature Granulocytes # (auto) 0.03 K/uL (0.00-0.02); Immature Granulocytes % (auto) 0.2 %; Lymphocytes # (auto) 2.28 K/uL (1.2-3.4); Lymphocytes % (auto) 17.7 %; Mean Corpuscular Hemoglobin 31.6 pg (25-34); Mean Corpuscular Hgb Conc 36.8 g/dL (32-36); Mean Corpuscular Volume 85.8 fL (80-100); Mean Platelet Volume 9.7 fL (7.4-10.4); Monocytes % (auto) 10.9 %; Neutrophils # (auto) 9.11 K/uL (1.4-6.5); Neutrophils % (auto) 70.6 %; Platelet Count 269 K/uL (130-400); RDW Coefficient of Variation 13.5 % (11.5-14.5); RDW Standard Deviation 42.2 fL (36.4-46.3); Red Blood Count 5.99 M/uL (4.7-6.1)
[2020-11-06 20:55] LABS: Alanine Aminotransferase 46 U/L (12-78); Albumin Level 4.8 gm/dl (3.4-5.0); Aspartate Aminotransferase 21 U/L (15-37); BUN Creatinine Ratio 13.2 (10-20); Blood Urea Nitrogen 14 mg/dl (7-18); Calcium 9.9 mg/dl (8.5-10.1); Carbon Dioxide 27 mmol/L (21-32); Chloride 104 mmol/L (98-107); Creatinine Clr Calc Pharmacy 91.8 ml/min; Est GFR (African American) 100.1; Est GFR (Non-African American) 86.4; Glucose 121 mg/dl (70-99); Lipase 162 U/L (73-393); Potassium 3.5 mmol/L (3.5-5.1); Sodium 138 mmol/L (136-145)
[2020-11-06 21:00] LABS: Albumin Globulin Ratio 1.3 (0.9-2); Alkaline Phosphatase 96 U/L (45-117); Bilirubin,Total 0.9 mg/dl (0.2-1); Globulin 3.6 gm/dl (2.5-4.0); Total Protein 8.4 gm/dl (6.4-8.2); Troponin I < 0.015 ng/ml (0-0.045)
[2020-11-06] MEDS ORDERED: OPTIRAY 300 100mL IV ONE (22:06)
[2020-11-06] MEDS ORDERED: HYDROmorphone INJ 0.5 MG/0.5 ML SYR IV STA (22:50)
[2020-11-06] MEDS ORDERED: KETOROLAC TROMETHAMINE 15 MG/ML VIAL IV STA (22:50)
[2020-11-06] MEDS ORDERED: FAMOTIDINE 20MG/5ML IV PUSH IV STA (23:40)
[2020-11-06] MEDS ORDERED: SODIUM CHLORIDE 0.9% 1000ML 500 ML IV ONE (23:40)
[2020-11-07] MEDS: MoRPHine SULFATE 4 MG/ML 1 ML CARP\\VIAL IV PRN (00:12)
[2020-11-07 01:51] LABS: Influenza A virus by PCR Negative (Neg); Influenza B virus by PCR Negative (Neg); RSV by PCR Negative (Neg); SARS CoV2 RNA(COVID-19) InHosp NEGATIVE (Negative)
[2020-11-07] MEDS: D5W AND NSS 1,000 ML IV SCH ×2 (05:37→14:49)
[2020-11-07] MEDS: ONDANSETRON INJ 2 MG/ML 2 ML VIAL IV PRN ×2 (05:40→13:30)
[2020-11-07] MEDS: HYDROmorphone INJ 0.5 MG/0.5 ML SYR IV PRN ×2 (05:41→13:30)
--- NOTE | 2020-11-07 07:11 | Ultrasound Report ---
US gallbladder HISTORY: 40 years-old Male epigastric pain acute epigastric abdominal pain COMPARISON: CT abdomen and pelvis 11/06/2020 TECHNIQUE: Multiple real-time sonographic images of the abdominal right upper quadrant were obtained assessing grayscale appearance and color flow FINDINGS: Pancreas is obscured by bowel gas. The liver is unremarkable. Mild distention of the gallbladder. No shadowing cholelithiasis, wall thickening or pericholecystic fluid. Negative sonographic Roblero's sig n. Normal common bile duct, 3 mm. Imaged right kidney is unremarkable without hydronephrosis. IMPRESSION: Unremarkable right upper quadrant abdominal ultrasound. ACT 112: Negative or not required by law. The above report was generated using voice recognition software. It may contain grammatical, syntax o r spelling errors. Electronically signed by: Juan C Ruiz M.D. 11/07/2020 7:10 AM
--- NOTE | 2020-11-07 07:19 | History and Physical Report ---
DATE OF ADMISSION: 11/07/2020 CHIEF COMPLAINT: Nausea, vomiting, abdominal pain. HISTORY OF PRESENT ILLNESS: A 40-year-old male with past medical history significant for cannabinoid hyperemesis syndrome, major depression, history of marijuana use, tobacco use, generalized anxiety disorder, who presents with nausea, vomiting and abdominal pain. Abdominal pain is more in the epigastric region. The patient required significant medications. In the ER, he was given Dilaudid, famotidine, Tylenol, morphine, , Zofran, and promethazine, but still symptoms are not completely resolved, so we were called for admission. The patient says he smoked marijuana a couple of weeks ago. Still has some abdominal pain and nausea. Denies any chest pain. No shortness of breath, no cough, no fever, no chills, no headache, no blurred vision, no earache, no runny nose, no sore throat, no dysphagia. Normal bowel and bladder movements. No black stools. Resting comfortably. ALLERGIES: COMPAZINE. PAST MEDICAL HISTORY: As mentioned above. PAST SURGICAL HISTORY: Colonoscopy, EGDs, EGD with endoscopic ultrasound. MEDICATIONS: Currently none. FAMILY HISTORY: Significant for paternal grandfather had brain cancer, paternal grandmother had brain cancer, father has diabetes. SOCIAL HISTORY: Smokes half pack a day for 20 years. Alcohol rarely. Smokes marijuana once or twice a month. REVIEW OF SYSTEMS: As per HPI. Rest of the review of systems negative. PHYSICAL EXAMINATION: GENERAL: The patient is of moderate build, not in acute distress. VITAL SIGNS: Temperature 37, pulse 57, respiratory rate 17, blood pressure 102/65, oxygen 97% on room air. HEENT: Pupils equal, round, and reactive to light. Oral mucosa dry. NECK: No JVD, no neck masses. CARDIOVASCULAR: S1, S2 heard, regular rate and rhythm, no murmur, no gallop. RESPIRATORY SYSTEM: Normal AP diameter. No accessory muscle use. No wheezing, no crackles. ABDOMEN: Soft, bowel sounds present. Diffuse abdominal tenderness mostly in the epigastric region, mild guarding, no rigidity. No distention. CENTRAL NERVOUS SYSTEM: Cranial nerves II through XII grossly intact. Nonfocal. EXTREMITIES: No edema, no erythema. LABORATORY DATA: WBC 12.9, hemoglobin 18.9, hematocrit 51.4, platelets 269. Sodium 138, potassium 3.5, chloride 104, bicarbonate 27, BUN 14, creatinine 1.07, serum glucose 121, lactate 1.5, calcium 9.9, total bilirubin 0.9, AST 21, ALT 46, alkaline phosphatase 96, troponin I less than 0.015. Lipase 162. SARS-CoV-2 PCR negative. Influenza A and B PCR negative. RSV PCR negative. IMAGING DATA: Chest x-ray, no acute findings. CT of abdomen and pelvis, preliminary report showed possible subtle cholelithiasis. Gallbladder ultrasound done, preliminary report unremarkable. EKG: Sinus tachycardia at a rate of 101, no acute ST changes seen. ASSESSMENT AND PLAN: This is a 40-year-old male who presents with persistent nausea, vomiting and abdominal pain. 1. Nausea, vomiting, and abdominal pain: smoked marijuana about 2 weeks as per patient. History of cannabinoid hyperemesis syndrome. Required several pain medications and several antiemetics in the ER. We will keep him n.p.o., IV fluids, IV antiemetics, IV pain medicine p.r.n. Consult GI in the a.m. for further recommendations. 2. Tobacco abuse, needs counseling. 3. Deep venous thrombosis prophylaxis: Sequential compression devices. 4. Disposition: Observation in medical floor. Expect to discharge home and follow with family doctor. CHRISTOPH
[2020-11-07 08:03] LABS: Basophils # (auto) 0.03 K/uL (0-0.2); Basophils % (auto) 0.3 %; Eosinophils # (auto) 0.11 K/uL (0-0.5); Eosinophils % (auto) 1.3 %; Hematocrit (blood only) 46.4 % (42-52); Immature Granulocytes # (auto) 0.02 K/uL (0.00-0.02); Immature Granulocytes % (auto) 0.2 %; Lymphocytes # (auto) 3.17 K/uL (1.2-3.4); Lymphocytes % (auto) 36.2 %; Mean Corpuscular Hemoglobin 30.4 pg (25-34); Mean Corpuscular Hgb Conc 34.5 g/dL (32-36); Mean Corpuscular Volume 88.2 fL (80-100); Mean Platelet Volume 9.5 fL (7.4-10.4); Monocytes # (auto) 0.99 K/uL (0.11-0.59); Monocytes % (auto) 11.3 %; Neutrophils # (auto) 4.44 K/uL (1.4-6.5); Neutrophils % (auto) 50.7 %; Platelet Count 204 K/uL (130-400); RDW Coefficient of Variation 13.6 % (11.5-14.5); Red Blood Count 5.26 M/uL (4.7-6.1); White Blood Count 8.76 K/uL (4.8-10.8)
[2020-11-07 08:06] LABS: BUN Creatinine Ratio 15.3 (10-20); Calcium 8.2 mg/dl (8.5-10.1); Est GFR (African American) 126.9; Est GFR (Non-African American) 109.5; Magnesium 2.1 mg/dl (1.8-2.4); Potassium 3.4 mmol/L (3.5-5.1)
--- NOTE | 2020-11-07 08:17 | CT Scan Report ---
ABDOMEN AND PELVIS CT WITH IV CONTRAST CT DOSE: 514.61 mGy.cm HISTORY: Acute upper abdominal pain with nausea and vomiting upper abd pain, vomiting TECHNIQUE: Multiaxial CT images of the abdomen and pelvis were performed following the IV administrat ion of 85 cc of Optiray, A dose lowering technique was utilized adhering to the principles of ALARA. COMPARISON STUDY: CT abdomen and pelvis 11/07/2017 FINDINGS: The imaged inferior cardiac chambers are unremarkable. Mild bibasilar dependent atelectasis. No pneum atosis or pneumoperitoneum. The spleen, pancreas, adrenal glands, gallbladder and liver. Unremarkable . 3 mm hypodensity of the left hepatic lobe on image 10 is too small to characterize however is likel y benign. There are a few subcentimeter lesions of the left kidney which are too small to characterize however suggestive of probable cysts. No urolith or obstructive uropathy. Unremarkable prostate. Moderate radha dder wall thickening with partial distention. Mild atheromatous plaque the abdominal aorta and iliac arteries. No aneurysm. No adenopathy. No bowel obstruction or bowel wall thickening. Enteric contrast is present within the colon. Normal a ppendix. No ascites or mesenteric inflammation. Fluid-filled loops of small bowel with air-fluid leve ls are noted throughout the abdomen and pelvis. Unremarkable soft tissues. No acute fracture. IMPRESSION: 1. No bowel obstruction or bowel wall thickening. Normal appendix. 2. Scattered small bowel air-fluid levels within the abdomen and pelvis. In the clinical setting of a cute nausea and vomiting, these findings may reflect a mild enteritis or ileus. ACT 112: Negative or not required by law. The above report was generated using voice recognition software. It may contain grammatical, syntax o r spelling errors. Electronically signed by: Juan C Ruiz M.D. 11/07/2020 8:16 AM
[2020-11-07] MEDS ORDERED: PANTOprazole 40 MG in SYRINGE 0 ML IV SCH (09:00)
[2020-11-07] MEDS: POTASSIUM CHLORIDE / WTR 10 MEQ/100 ML PLCT IV SCH ×2 (09:20→10:54)
--- NOTE | 2020-11-07 09:50 | Gastrointestinal Consultation ---
Date of Consultation November 07, 2020 Assessment & Plan (1) Epigastric abdominal pain: (2) Nausea & vomiting: Pt is a 40 y/o male presented w n/v, epigastric pain symptoms. Mild leukocytosis noted, LFTs, lipase normal. Gallbladder u/s, CT abd/pelvis w/o acute obstructive or inflammatory processes, gallbadder or hepatobiliary disease. ? possible enteritis vs ileus noted given air fluid level in small bowel. DDx: gastroenteritis, IBS, cannabis hyperemesis syndrome. - PPI daily - CL diet, advance as tolerated - IVF support may be discontinued if tolerating PO intake well - If diarrhea, collect stool cx, Cdiff - Defer endoscopic eval - Cannabis cessation - GI to sign off; pls recall prn Supervising Physician Co-Signing Physician Notes I have personally seen and examined the patient with DANIEL Joy. Her note reflects my exam and findings. I agree with her impression and plan. Strongest recommendation is cannabis cessation. Raheel Beck M.D. History of Present Illness Reason for Consultation: N/V, abd pain Requesting Physician: Dr. Evin Kimble Attending Physician: Dr. Raheel Beck History of Present Illness Pt is a 40 yr old male who presented yesterday w c/o abd pain n/v x 2 days. He is afebrile denies no hematemesis or coffee ground emesis. Denies bowel habit changes including diarrhea. He denies sick contact, travels, raw/undercooked foods. He only takes TUMs for heartburn prn , no other prescription meds. Denies NSAIDs. Does drink "rarely" and smokes tobacco & marijuana (last used marijuana 2 weeks ago). He had Ct abd/pelvis w contrast and gallbladder us - no signs of hepatobiliary, gallbladder dz, + small bowel air fluid filled ? ileus vs enteritis. Lipase, LFTs normal. Pt had been seen in GI clinic before w symptoms of n/v. EGD/EUS evals (2016- 2017) unremarkable. Symptoms were suspected to be related to cannabis use vs fluoxetine. Allergies Allergy/AdvReac Type Severity Reaction Status Date / Time prochlorperazine AdvReac Unknown UNKNOWN Verified 11/06/20 20:06 Home Medications Medication Instructions Recorded Confirmed Type No Known Home Medications 11/06/18 04/28/21 History Patient History Medical History (Updated 11/07/20 @ 10:16 by DANIEL Beauchamp) Intractable vomiting Marijuana abuse, continuous Surgical History S/P T&A (status post tonsillectomy and adenoidectomy) Social History Smoking Status: Current every day smoker Hx Alcohol Use: No Hx Substance Use: No Preferred Language: Serbian Communication Ability: Effective Antenna Specialist Required: No Beliefs That Will Affect Care: None Current Living Situation: Significant Other Other Information That Helps Us Care for You: No Feels Safe at Home: Yes Safety Concerns: Feels Safe At This Time Assistive Devices: Glasses Review of Systems Review of Systems: All systems reviewed & are unremarkable except as noted in HPI & below Physical Exam Constitutional: WD/WN, vitals as above well groomed, cooperative and comfortable Eyes: PERRL, conjunctivae normal, anicteric sclerae ENMT: external ear and nose normal, oropharynx normal Respiratory: normal respiratory effort, lungs clear to auscultation Cardiovascular: RRR, no murmur, no edema Gastrointestinal (Abdomen): Inspection/Auscultation: + hypoactive bowel sounds Percussion/Palpation: + abdomen tender (epigastric ) and abdomen soft Skin: no rashes, warm and dry no jaundice Psychiatric: A+Ox3, euthymic affect Lymphatic: no lymphedema Results & Data ([facility]) Vital Signs (Past 12 Hours) Vital Signs Temp Pulse Pulse Resp BP Pulse Ox 11/07/20 07:28 36.7 C 53 L 16 102/64 95 11/07/20 05:11 36.5 C 60 14 101/62 95 11/07/20 04:55 57 L 16 105/66 96 11/07/20 04:25 73 19 100/60 95 11/07/20 03:00 57 L 17 104/75 95 11/07/20 01:30 57 L 17 102/65 97 11/07/20 00:14 66 18 111/75 97 11/06/20 23:00 61 21 131/79 94 11/06/20 22:33 67 16 141/83 H 97
[2020-11-07 14:22] LABS: Amphetamines+Metham, Urine Neg (Neg); Barbiturates, Urine Neg (Neg); Benzodiazepine, Urine Neg (Neg); Cocaine, Urine Neg (Neg); MDMA (Ecstacy), Urine Neg (Neg); Methadone, Urine Neg (Neg); Opiate, Urine Pos (Neg); Phencyclidine, Urine Neg (Neg)
[2020-11-07 14:23] LABS: Appearance Urine Clear (Clear); Bacteria Urine Automated Negative (Negative); Blood Urine Negative (Negative); Color Urine Dark Yellow; Epithelial Cell Urine Auto >30 /lpf (0-5); Glucose Urine UA Negative (Negative); Ketones Urine Trace (Negative); Leukocyte Esterase Urine Negative (Negative); Nitrite Urine Negative (Negative); Protein Urine Trace (Negative); RBC Urine Automated 0-4 /hpf (0-4); Specific Gravity Urine 1.043 (1.000-1.030); Urobilinogen Urine Negative (Negative); pH Urine 6.5 (4.5-7.5)
[2020-11-07 14:28] LABS: Bilirubin Urine 1+ (Negative)
[2020-11-07 14:37] LABS: Mucus Urine Present (None Prsent)
--- NOTE | 2020-11-07 16:59 | Hospitalist Progress Note ---
Date of Service November 07, 2020 Assessment & Plan (1) Nausea & vomiting: Admitted with abdominal pain with nausea and vomiting Has been going on for the last 3 or 4 days History of marijuana abuse Could be secondary to withdrawal from marijuana Was kept n.p.o. and given intravenous fluid and electrolyte replacement Appreciate GI input and recommendation He was feeling much better this afternoon and was advised to start clears orally and advance diet as tolerated Unfortunately he signed out AMA (2) Epigastric abdominal pain: As above (3) Acute dehydration: Got intravenous fluid and tolerating clears orally (4) Leukocytosis: Resolved (5) Marijuana abuse, continuous: Last marijuana use in about 2 weeks ago The patient signed out AMA Admission and Anticipated Discharge Date Admission Date: November 07, 2020 Subjective 11/07/2020 The patient was seen and examined in medical floor He has been feeling much better and only complains of some nausea without vomiting He has been tolerating clears for now Review of Systems Review of Systems: All systems reviewed and are unremarkable except as noted below Physical Exam Physical Exam: Lying in bed comfortably Constitutional: no acute distress and not ill appearing Eyes: PERRL, conjunctivae normal, anicteric sclerae ENMT: external ear and nose normal, oropharynx normal Neck: trachea midline, no thyromegaly Respiratory: no respiratory distress Auscultation: lungs clear to auscultation bilaterally Cardiovascular: Rate/Rhythm: regular rate and regular rhythm Heart Sounds: no murmur Gastrointestinal (Abdomen): Inspection/Auscultation: normal bowel sounds; abdomen not distended Percussion/Palpation: abdomen soft; abdomen nontender Musculoskeletal: No acute arthritis involving any joint Neurologic: Alert, awake and oriented x3 Results & Data Results & Data ([facility]) Vital Signs (Past 12 Hours) Vital Signs Temp Pulse Pulse Resp BP Pulse Ox 11/07/20 15:34 36.7 C 57 L 53 L 16 102/64 95 11/07/20 07:28 36.7 C 53 L 16 102/64 95 11/07/20 05:11 36.5 C 60 14 101/62 95 11/07/20 04:55 57 L 16 105/66 96 Laboratory Results Short CBC 11/06/20 11/07/20 Range/Units 20:31 06:58 WBC 12.90 H 8.76 (4.8-10.8) K/uL Hgb 18.9 H 16.0 (14.0-18.0) g/dL Hct 51.4 46.4 (42-52) % Plt Count 269 204 (130-400) K/uL BMP 11/06/20 11/07/20 20:31 06:58 Sodium 138 140 Potassium 3.5 3.4 L Chloride 104 111 H Carbon Dioxide 27 26 BUN 14 13 Creatinine 1.07 0.84 Glucose 121 H 99 Calcium 9.9 8.2 L D Cardiac Enzymes 11/06/20 Range/Units 20:31 Troponin I < 0.015 (0-0.045) ng/ml Liver Function 11/06/20 Range/Units 20:31 Total Bilirubin 0.9 (0.2-1) mg/dl AST 21 (15-37) U/L ALT 46 (12-78) U/L Alkaline Phosphatase 96 (45-117) U/L Albumin 4.8 (3.4-5.0) gm/dl Urine 11/07/20 Range/Units 13:50 Urine Color Dark Yellow Urine Appearance Clear (Clear) Urine pH 6.5 (4.5-7.5) Ur Specific [place] 1.043 H (1.000-1.030) Urine Protein Trace H (Negative) Urine Glucose (UA) Negative (Negative) (1) Leukocytosis Leukocytosis type: unspecified Qualified Code(s): D72.829 - Elevated white blood cell count, unspecified
--- NOTE | 2020-11-08 06:16 | Electrocardiogram Report ---
Test Reason : Blood Pressure : / mmHG Vent. Rate : 101 BPM Atrial Rate : 101 BPM P-R Int : 158 ms QRS Dur : 082 ms QT Int : 340 ms P-R-T Axes : 089 071 070 degrees QTc Int : 440 ms Sinus tachycardia Possible Left atrial enlargement Cannot rule out Anterior infarct (cited on or before 06-NOV-2020) Abnormal ECG When compared with ECG of 07-AUG-2018 05:31, Vent. rate has increased BY 33 BPM QRS duration has decreased Confirmed by Reza Page ([id number]) on 11/08/2020 6:15:52 AM Referred By: REFERRED SELF Confirmed By:Reza Page
--- NOTE | 2020-11-08 08:47 | Discharge Summary ---
Date of Service November 08, 2020 Admission HPI Per Admitting Provider DICTATED BY: Keyur Ashley MD DATE OF ADMISSION: 11/07/2020 CHIEF COMPLAINT: Nausea, vomiting, abdominal pain. HISTORY OF PRESENT ILLNESS: A 40-year-old male with past medical history significant for cannabinoid hyperemesis syndrome, major depression, history of marijuana use, tobacco use, generalized anxiety disorder, who presents with nausea, vomiting and abdominal pain. Abdominal pain is more in the epigastric region. The patient required significant medications. In the ER, he was given Dilaudid, famotidine, Tylenol, morphine, , Zofran, and promethazine, but still symptoms are not completely resolved, so we were called for admission. The patient says he smoked marijuana a couple of weeks ago. Still has some abdominal pain and nausea. Denies any chest pain. No shortness of breath, no cough, no fever, no chills, no headache, no blurred vision, no earache, no runny nose, no sore throat, no dysphagia. Normal bowel and bladder movements. No black stools. Resting comfortably. Admission Exam Per Admitting Provider GENERAL: The patient is of moderate build, not in acute distress. VITAL SIGNS: Temperature 37, pulse 57, respiratory rate 17, blood pressure 102/65, oxygen 97% on room air. HEENT: Pupils equal, round, and reactive to light. Oral mucosa dry. NECK: No JVD, no neck masses. CARDIOVASCULAR: S1, S2 heard, regular rate and rhythm, no murmur, no gallop. RESPIRATORY SYSTEM: Normal AP diameter. No accessory muscle use. No wheezing, no crackles. ABDOMEN: Soft, bowel sounds present. Diffuse abdominal tenderness mostly in the epigastric region, mild guarding, no rigidity. No distention. CENTRAL NERVOUS SYSTEM: Cranial nerves II through XII grossly intact. Nonfocal. EXTREMITIES: No edema, no erythema. Principal Diagnosis Nausea,Vomiting and abdominal pain Discharge Exam Constitutional no acute distress and not ill appearing Eyes PERRL, conjunctivae normal, anicteric sclerae ENMT external ear and nose normal, oropharynx normal Neck trachea midline, no thyromegaly Respiratory no respiratory distress Auscultation: lungs clear to auscultation bilaterally Cardiovascular Rate/Rhythm: regular rate and regular rhythm Heart Sounds: no murmur Gastrointestinal (Abdomen) Inspection/Auscultation: normal bowel sounds; abdomen not distended Percussion/Palpation: abdomen soft; abdomen nontender Discharge Data Allergies Allergy/AdvReac Type Severity Reaction Status Date / Time prochlorperazine AdvReac Unknown UNKNOWN Verified 11/06/20 20:06 Consultations 11/07/20 00:41 ED Decision to Admit Stat 11/07/20 08:00 Consult Gastroenterology Routine Ordered Studies 11/06/20 20:06 CT abd pelvis IV con only Urgent 11/06/20 23:32 US gallbladder Urgent Hospital Course (1) Nausea & vomiting: Admitted with abdominal pain with nausea and vomiting Has been going on for the last 3 or 4 days History of marijuana abuse Could be secondary to withdrawal from marijuana Was kept n.p.o. and given intravenous fluid and electrolyte replacement Appreciate GI input and recommendation He was feeling much better this afternoon and was advised to start clears orally and advance diet as tolerated Unfortunately he signed out AMA (2) Epigastric abdominal pain: As above (3) Acute dehydration: Got intravenous fluid and tolerating clears orally (4) Leukocytosis: Resolved (5) Marijuana abuse, continuous: Last marijuana use in about 2 weeks ago The patient signed out AMA Total Time Total Time Spent Total Time Spent (In Minutes): 20 minutes Total Time Includes: Other (Signed out AMA) Discharge Plan Discharge Items Reason For Visit: N/V, ABDOMINAL PAIN Condition on Discharge: Fair Follow-up/Referrals: PCP,NO [Primary Care Provider] - Medications and DC Order Prescriptions: No Action No Known Home Medications RF: 0 Admission Data Admit Date/Time: 11/07/20 04:38 Attending Provider: Evin Kimble Admit Provider: Keyur Ashley Primary Care Provider: PCP,NO Other Providers: Keyur Ashley ; Vu Mcgovern Other Interventions: Discharge Summary Assessment (RN) Last Done: 11/07/20 15:34
[2020-11-10 02:52] LABS: Codeine Urine NEGATIVE ng/mL (<50); Hydrocodone Urine NEGATIVE ng/mL (<50); Hydromor Urine 1220 ng/mL (<50); Marijuana Quant, GCMS Urine 567 ng/mL (<5); Morphine Urine 2860 ng/mL (<50); Norhydrocodone Conf Ur NEGATIVE ng/mL (<50); Noroxycodone Urine NEGATIVE ng/mL (<50); Oxycodone Urine NEGATIVE ng/mL (<50); Oxymorph Urine NEGATIVE ng/mL (<50)
== END 2020-11-07 15:36 | disposition home or self-care (01) ==
LOC: 3N 19:44 → ED 19:44 → 3N 11-07 05:01